=== PATIENT | female | born 1940 | race Asian ===

== ENCOUNTER 2019-12-28 14:46 | Inpatient (IN) | payer MEDICARE, OTHER ==
[~2019-12-28] VITALS: Ht 154.9 cm; Wt 57.6 kg
--- NOTE | 2019-12-28 14:50 | NUR ---
[id number], from home with laceration on the back of the head s/p slipped and fell from stairs. pt denies syncope episode. c/o headache. no blurry vision. awaiting for MD bay
--- NOTE | 2019-12-28 15:12 | NUR ---
PER DAUGHTER, PATIENT DOES NOT TAKE ANY BLOOD THINNER MEDICATIONS.
[2019-12-28] MEDS ORDERED: TDAP [DIPH/PERTUSSIS/TET] 0.5 ML VIAL IM ONE ×2 (15:30→15:56)
--- NOTE | 2019-12-28 15:56 | NUR ---
PT OUT FOR CT
[2019-12-28 16:19] LABS: BASOPHILS # (AUTO) 0.1 /CMM (0.0-0.2); BASOPHILS % (AUTO) 1.5 % (0.0-2.0); EOSINOPHILS % (AUTO) 2.7 % (0.0-6.0); HEMATOCRIT 49 % (33-45); HEMOGLOBIN 16.1 g/dL (11.5-14.8); LYMPHOCYTES # (AUTO) 1.7 /CMM (0.8-4.8); LYMPHOCYTES % (AUTO) 26.4 % (20.0-44.0); MEAN CORPUSCULAR HGB CONC 33 g/dl (31.0-36.0); MEAN CORPUSCULAR VOLUME 90 fL (82-100); MONOCYTES # (AUTO) 0.5 /CMM (0.1-1.30); MONOCYTES % (AUTO) 8.3 % (2.0-12.0); NEUTROPHILS % (AUTO) 61.1 % (43.0-81.0); PLATELET COUNT (AUTO) 203 /CMM (150-450); RED BLOOD CELL COUNT(AUTO) 5.46 MIL/uL (4.0-5.2); WHITE BLOOD COUNT (AUTO) 6.6 K/uL (4.3-11.0)
[2019-12-28 17:12] LABS: ALANINE AMINOTRANSFERASE 52 U/L (12-78); ALBUMIN 4.1 g/dL (3.4-5.0); ALKALINE PHOSPHATASE 97 U/L (46-116); ASPARTATE AMINOTRANSFERASE 69 U/L (15-37); BILIRUBIN,DIRECT 0.1 mg/dL (0.0-0.2); BILIRUBIN,TOTAL 0.5 mg/dL (0.2-1.0); CALCIUM, SERUM 9.6 mg/dL (8.5-10.1); CARBON DIOXIDE 29 mmol/L (21-32); CHLORIDE 91 mmol/L (98-107); CREATININE 1.5 mg/dL (0.6-1.3); POTASSIUM 4.5 mmol/L (3.5-5.1); SODIUM SERUM 128 mmol/L (136-145); TOTAL PROTEIN, SERUM 8.7 g/dL (6.4-8.2); UREA NITROGEN, BLOOD 24 mg/dL (7-18)
[2019-12-28 17:14] LABS: GLUCOSE 420 mg/dL (74-106)
[2019-12-28] MEDS ORDERED: ROSU10TA29 PO (17:15)
[2019-12-28] MEDS ORDERED: METO100T14 PO (17:15)
[2019-12-28] MEDS ORDERED: OLME1TAB90 PO (17:15)
[2019-12-28] MEDS ORDERED: GLIP10TA21 PO (17:15)
[2019-12-28] MEDS ORDERED: AMLO-212 PO (17:15)
[2019-12-28] MEDS ORDERED: METF-442 PO (17:15)
[2019-12-28] MEDS ORDERED: DULA0.75 SQ (17:15)
[2019-12-28] MEDS ORDERED: MONT10TA22 PO (17:15)
[2019-12-28] MEDS ORDERED: OMEP40CA13 PO (17:15)
--- NOTE | 2019-12-28 17:42 | NUR ---
tried to collect urine and pt still unable to collect at this time
[2019-12-28] MEDS ORDERED: IV NS 0.9% 500 ML BAG IV ONE (18:00)
[2019-12-28] MEDS ORDERED: INSULIN REGULAR, HUMAN 100 UNIT/ML 10 ML VIAL SQ ONE (18:00)
--- NOTE | 2019-12-28 18:04 | NUR ---
COVID SWAB DONE AND SENT TO LAB
[2019-12-28] MEDS ORDERED: INSULIN REGULAR, HUMAN 100 UNIT/ML 10 ML VIAL ONE (18:06)
[2019-12-28] MEDS ORDERED: ACETAMINOPHEN 325 MG TABLET PO PRN (18:30)
[2019-12-28] MEDS ORDERED: DEXTROSE 50%-WATER 50 ML DISP.SYRIN IV PRN (18:30)
[2019-12-28] MEDS ORDERED: MAG HYDROX/AL HYDROX/SIMETH 30 ML UDC PO PRN (18:30)
[2019-12-28] MEDS ORDERED: CLONIDINE HCL 0.1 MG TABLET PO PRN (18:30)
[2019-12-28] MEDS ORDERED: Z GUARD REMEDY 2 OZ OINT TP PRN (18:30)
[2019-12-28] MEDS ORDERED: MAGNESIUM HYDROXIDE 30 ML UDC PO PRN (18:30)
[2019-12-28] MEDS ORDERED: ONDANSETRON HCL/PF 4 MG/2 ML VIAL IVP PRN (18:30)
--- NOTE | 2019-12-28 18:44 | NUR ---
unable to collect urine. MD prasad made aware and agreed not to collect
--- NOTE | 2019-12-28 19:06 | NUR ---
IV LINE LAC 20G REMOVED DUE TO PT WILL BE ON VELCRO WRIST.
--- NOTE | 2019-12-28 19:58 | NUR ---
BED ASSIGNMENT 325-1
--- NOTE | 2019-12-28 20:13 | NUR ---
report given to nish gill for eloisa pt will be transported to 3rd floor
[2019-12-28 20:30] VITALS: BP 116/61
--- NOTE | 2019-12-28 20:30 | NUR ---
TELE/RN ADMITTING NOTES: RECEIVED REPORT FROM ROMEO PALM NURSE. PT ARRIVED TO THE UNIT AT 2024 VIA GURNEY, WITH ACLS PROTOCOL. ON ROOM AIR, SATURATING WELL. A/OX4. UZBEK BUT FLUENT IN CROATIAN. VERBALLY RESPONSIVE AND ANAY TO MAKE NEEDS KNOWN. NO SOB, NO S/S OF DISTRESS. COMPLAINS OF DISCOMFORT ON HER LEFT SHOULDER. PER PT "I FELL FROM THE SECOND FLOOR DOWN THE STAIRS, LIKE 20 STEPS. LUCKILY I OPENED THE DOOR AND CALLED MY NEIGHBOR, THEN THEY CALLED AMBULANCE. I LIVE BY MYSELF AND I'M INDEPENDENT. I WALK FINE ON MY OWN BUT I GOT REALLY DIZZY". CONNECTED TO THE TELE MONITOR. READING IS CURRENTLY NSR 65. ORIENTED PT TO UNIT AND STAFF. BELONGINGS LIST CHECKED. FULL CODE STATUS. IV ON THE RIGHT AC #18G, INTACT AND PATENT, FLUSHING WELL. INITIAL VS TAKEN. BP: 116/61 HR: 68 TEMP: 98.1 O2SAT: 100%. SKIN ASSESSMENT DONE. RIGHT KNEE SKIN TEAR PRESENT, LEFT FOOT SKIN TEAR PRESENT, ABRASIONS ON THE LEFT HAND PRESENT, AND NOTED WITH KEILA ON THE POSTERIOR HEAD. WRAPPED WITH GAUZE AND KERLIX, SATURATED. WILL REPLACE WITH CLEAN AND DRY DRESSING. PT. IS AMBULATORY, PREFERS TO GO TO BED SIDE COMMODE. INFORMED PT TO REST IN BED FOR NOW AND TO PRESS THE CALL LIGHT WHEN NEEDS ASSISTANCE. BED ALARM ON. CALL LIGHT WITHIN REACH. SAFETY MEASURES IN PLACE. BED IN LOW, LOCKED POSITION WITH SR UP X2. WILL CONTINUE TO MONITOR ACCORDINGLY. ALL CONCERNS ADDRESSED RIGHT NOW.
[2019-12-28] MEDS: METOPROLOL TARTRATE 50 MG TABLET PO SCH (21:00)
[2019-12-28] MEDS: AMLODIPINE BESYLATE 5 MG TABLET PO SCH (21:08)
[2019-12-28] MEDS: MONTELUKAST SODIUM (10MG) 10 MG TABLET PO SCH (21:10)
[2019-12-28] MEDS: IV NS 0.9% 1,000 ML IV SCH (21:19)
[2019-12-28 21:25] VITALS: BP 116/61
--- NOTE | 2019-12-28 22:00 | NUR ---
TELE/RN NOTES: ACCUCHECK FOR 2200 IS 220. ADMINISTERED 4UNITS OF REG. INSULIN PER SLIDING SCALE. GIVEN APPLE JUICE TO AVOID BS FROM DROPPING.
[2019-12-28] MEDS: ZOLPIDEM TARTRATE 5 MG TABLET PO PRN (22:01)
[2019-12-28] MEDS: BLOOD SUGAR DIAGNOSTIC 1 EACH STRIP VI SCH (22:06)
[2019-12-28] MEDS: *INSULIN REGULAR(HUMULIN R)HUM 100 UNIT/ML VIAL SQ PRN (22:09)
[2019-12-29] VITALS: BP 109/50
--- NOTE | 2019-12-29 02:40 | NUR ---
TELE/RN NOTES: ON-CALL, OUTSIDE MACHINIST HELPER DERIK NOTIFIED ABOUT VTE SCORE OF PATIENT 3. PER OUTSIDE MACHINIST HELPER, "NO CHEMICAL PROPHYLAXIS YET. NEEDS ORTHO CONSULT FIRST".
[2019-12-29 04:00] VITALS: BP 116/60
[2019-12-29] MEDS: HYDROCODONE/APAP 5/325MG TABLET PO PRN ×2 (04:00→17:47)
--- NOTE | 2019-12-29 04:07 | NUR ---
TELE/RN NOTES: PT. COMPLAINED OF PAIN 7 ON HER SHOULDER AND HEAD, A/OX4. VSS. BP: 116/60 HR:65. ADMINISTERED NORCO 5/325 PO PRN Q4 ORDERED FOR PAIN. TOLERATED WELL. GIVEN WITH APPLE SAUCE. PER PT "I PREFER TO EAT SO MY STOMACH DON'T HURT WHEN I TAKE MEDICINE". WILL CONTINUE TO MONITOR.
[2019-12-29] MEDS: IV NS 0.9% 1,000 ML IV SCH ×2 (04:12→16:00)
--- NOTE | 2019-12-29 06:28 | NUR ---
TELE/RN CLOSING NOTES: PT. REMAINS STABLE, COMFORTABLY RESTING IN BED. ON ROOM AIR, SATURATING WELL. A/OX4. VERBALLY RESPONSIVE AND ANAY TO MAKE NEEDS KNOWN. NO SOB, NO S/S OF DISTRESS. NO C/O AT THIS TIME. TELE READING IS CURRENTLY NSR 60. IV ON THE RIGHT AC #18G, INTACT AND PATENT, FLUSHING WELL. PREFERS TO GO TO BED SIDE COMMODE. INFORMED PT TO REST IN BED FOR NOW AND TO PRESS THE CALL LIGHT WHEN NEEDS ASSISTANCE. BED ALARM ON. CALL LIGHT WITHIN REACH. ALL CONCERNS ADDRESSED RIGHT NOW. SAFETY MEASURES KEPT IN PLACE, BED LOCKED AND IN LOWEST POSITION, CALL LIGHT WITHIN REACH. ALL DUE MEDS GIVEN ORDERED. ALL NURSING NEEDS MET AND RENDERED. KEPT CLEAN AND DRY AT ALL TIMES, WARM AND COMFORTABLE THROUGHOUT THE SHIFT. WILL ENDORSE TO DAY SHIFT FOR XIOMARA.
[2019-12-29 07:00] LABS: BASOPHILS % (AUTO) 0.7 % (0.0-2.0); EOSINOPHILS % (AUTO) 2.8 % (0.0-6.0); HEMATOCRIT 40 % (33-45); HEMOGLOBIN 13.3 g/dL (11.5-14.8); LYMPHOCYTES # (AUTO) 1.8 /CMM (0.8-4.8); LYMPHOCYTES % (AUTO) 28.2 % (20.0-44.0); MEAN CORPUSCULAR HGB CONC 33 g/dl (31.0-36.0); MEAN CORPUSCULAR VOLUME 89 fL (82-100); MONOCYTES # (AUTO) 0.5 /CMM (0.1-1.30); MONOCYTES % (AUTO) 8.4 % (2.0-12.0); NEUTROPHILS # (AUTO) 3.8 /CMM (1.8-8.9); NEUTROPHILS % (AUTO) 59.9 % (43.0-81.0); PLATELET COUNT (AUTO) 175 /CMM (150-450); RED BLOOD CELL COUNT(AUTO) 4.49 MIL/uL (4.0-5.2); WHITE BLOOD COUNT (AUTO) 6.3 K/uL (4.3-11.0)
[2019-12-29 07:14] LABS: CALCIUM, SERUM 8.2 mg/dL (8.5-10.1); CREATININE 1.1 mg/dL (0.6-1.3); MAGNESIUM 1.5 mg/dL (1.8-2.4); PHOSPHORUS 3.2 mg/dL (2.5-4.9); POTASSIUM 3.3 mmol/L (3.5-5.1)
[2019-12-29] MEDS: INSULIN REGULAR, HUMAN 100 UNIT/ML 3 ML VIAL SQ PRN ×3 (07:34→17:36)
[2019-12-29] MEDS: BLOOD SUGAR DIAGNOSTIC 1 EACH STRIP VI SCH ×4 (07:34→21:06)
--- NOTE | 2019-12-29 07:35 | NUR ---
TELE/RN NOTES: BS CHECK FOR 729 IS 123. NO REG INSULIN COVERAGE NEEDED.
[2019-12-29 08:00] VITALS: BP 115/62
[2019-12-29] MEDS: METOPROLOL TARTRATE 50 MG TABLET PO SCH ×2 (09:00→21:00)
[2019-12-29] MEDS ORDERED: Medication Not On Formulary EA (Olmesartan/Hydrochlorothiazide (Olmesartan-Hctz 40-12.5 PO SCH (09:00)
[2019-12-29] MEDS: AMLODIPINE BESYLATE 5 MG TABLET PO SCH (09:00)
[2019-12-29] MEDS: LOSARTAN POTASSIUM 50 MG TABLET PO SCH (09:17)
[2019-12-29] MEDS ORDERED: HYDROCHLOROTHIAZIDE 25 MG TABLET PO SCH (09:17)
--- NOTE | 2019-12-29 09:49 | NUR ---
WOUND CARE CONSULT: PT PRESENTS WITH MULTIPLE AREAS OF SKIN DISCOLORATION, DRY ABRASIONS TO LEFT DORSAL FOOT AND RT KNEE AND STAPLED LACERATION TO POSTERIOR SCALP, ALL PRESENT ON ADMISSION. PT IS WEARING A SPLINT TO LEFT ARM, PRESENT ON ADMISSION. CURRENT ARCHANA SCORE IS 21. WILL SEE PRN.
[2019-12-29] MEDS: POTASSIUM CHLORIDE 20 MEQ TAB.PRT.SR PO SCH ×3 (10:08→12:31)
[2019-12-29] MEDS: PANTOPRAZOLE 40 MG TABLET.DR PO SCH (10:08)
[2019-12-29] MEDS: ATORVASTATIN 10 MG TABLET PO SCH (10:09)
[2019-12-29] MEDS: MONTELUKAST SODIUM (10MG) 10 MG TABLET PO SCH (10:09)
[2019-12-29] MEDS: Magnesium 1GM/D5W 100ML PREMIX 100 ML IV SCH ×2 (10:17→11:59)
--- NOTE | 2019-12-29 11:21 | NUR ---
Pharmacist consult requested by Dr. Preet Segura as patient lives alone and fell down the stairs. Patient is an 79- year-old female. Patient is alert and oriented x4. Patient was receptive to meeting with this SW. Patient was calm, cooperative, and made appropriate eye contact with this SW. Patient reported that she fell on 12/27 in her home after feeling uneasy. Patient stated that she had been dizzy and reported that she took her blood pressure and patient reported her blood pressure was high. Patient reported that she took her blood pressure medicine and fell asleep. Once patient woke up, patient stated that she was dizzy however was going to use the restroom. Patient stated that she attempted to grab onto stair railing but could not and fell. Patient stated that her daughter Viridiana comes to help her mother around the house, in the mornings and in the evenings. Patient stated that with COVID this is the only time she really sees her daughter. Patient stated that she has not had an appetite and has needed a sleeping pill 2-3x a week. Patient reported that she has not seen her primary physician due to the pandemic but does have over the phone sessions when necessary. Patient reported that yung Kemp is currently at the patients home and can provide transportation upon discharge. Patient and social sciences instructor discussed In-Home Support Services, private caregiver, and having more family availability to assist the patient as needed. Patient did not want IHSS or private caregiver as patient reported that she is independent in IADLs and ADLs. Patient stated that she will speak to daughter and other family members if they can be more available to her. Patient also awaiting physician recommendation as she has pain on her head and left arm due to fall. No other SS interventions are needed at this time. SW will remain available for all needs regarding this patient.
[2019-12-29 12:00] VITALS: BP_SYST 142; BP_SYST 148; BP_SYST 156; BP_DIAS 68; BP_DIAS 76; BP_DIAS 83
[2019-12-29 12:28] LABS: CREATININE, URINE 37.8 MG/DL (30.0-125.0); URINE TOTAL PROTEIN 7.7 mg/dL (0-11.9)
[2019-12-29 12:33] LABS: BILIRUBIN,URINE NEGATIVE (NEGATIVE); BLOOD, URINE NEGATIVE Ery/uL (NEGATIVE); COLOR,URINE YELLOW (YELLOW); LEUKOCYTE ESTERASE ,URINE NEGATIVE (NEGATIVE); NITRITE, URINE NEGATIVE (NEGATIVE); PROTEIN,URINE NEGATIVE (NEGATIVE); UGLUCOSE >=1000 mg/dL (NEGATIVE); UROBILINOGEN,URINE 0.2 EU/dL (0.2)
[2019-12-29 12:45] LABS: BACTERIA,URINE Rare /HPF (None Seen); RBC,URINE 0-2 /HPF (0-2); SQUAMOUS EPITHELIAL CELL,UR Rare /HPF (None Seen); WBC,URINE 0-2 /HPF (0-3)
[2019-12-29 13:23] LABS: EOSINOPHIL,URINE None Seen
[2019-12-29 16:00] VITALS: BP 128/69
[2019-12-29] MEDS: *INSULIN REGULAR(HUMULIN R)HUM 100 UNIT/ML VIAL SQ PRN ×2 (17:31→21:11)
--- NOTE | 2019-12-29 18:00 | NUR ---
DRUG SCREEN URINE SENT WELL URINES FOR DR. GONZALEZ.MG AND POTASSIUM REPLACEMENTS GIVEN.MEDICATED X 1 FOR HEADACHE AND LT. SHOULDER PAIN.NO ORTHO CONSULT THUS FAR.
--- NOTE | 2019-12-29 19:34 | NUR ---
ROOF FITTER OPEN NOTES PT IS LAYING IN BED. A/O X4. STABLE ON RA, NO SOB/ ACUTE RESPIRATORY DISTRESS NOTED. IV IN R AC #18G IS PATENT AND INTACT RUNNING NS @ 100MLS/HR. PT DENIES ANY PAIN AT THE MOMENT. BED IS IN LOWEST LOCKED POSITION WITH SIDE RAILS UP X3, SEMI FOWLERS. CALL LIGHT IS WITHIN REACH. WILL CONTINUE TO MONITOR.
[2019-12-29 20:00] VITALS: BP 111/56
[2019-12-29] MEDS: ENOXAPARIN SODIUM 40 MG/0.4 ML DISP.SYRIN SQ SCH (20:45)
[2019-12-29] MEDS: ZOLPIDEM TARTRATE 5 MG TABLET PO PRN (21:17)
[2019-12-30] VITALS (7 sets, daily range): BP systolic 109–153; BP diastolic 48–91
[2019-12-30] MEDS: IV NS 0.9% 1,000 ML IV SCH ×2 (00:49→10:40)
[2019-12-30] MEDS: HYDROCODONE/APAP 5/325MG TABLET PO PRN ×2 (03:35→08:56)
[2019-12-30 06:22] LABS: BASOPHILS % (AUTO) 0.7 % (0.0-2.0); HEMATOCRIT 38 % (33-45); HEMOGLOBIN 12.6 g/dL (11.5-14.8); LYMPHOCYTES # (AUTO) 1.1 /CMM (0.8-4.8); LYMPHOCYTES % (AUTO) 19.2 % (20.0-44.0); MEAN CORPUSCULAR HGB CONC 33 g/dl (31.0-36.0); MEAN CORPUSCULAR VOLUME 90 fL (82-100); MONOCYTES # (AUTO) 0.4 /CMM (0.1-1.30); MONOCYTES % (AUTO) 6.7 % (2.0-12.0); NEUTROPHILS # (AUTO) 4.1 /CMM (1.8-8.9); NEUTROPHILS % (AUTO) 72.4 % (43.0-81.0); PLATELET COUNT (AUTO) 169 /CMM (150-450); RED BLOOD CELL COUNT(AUTO) 4.22 MIL/uL (4.0-5.2); WHITE BLOOD COUNT (AUTO) 5.7 K/uL (4.3-11.0)
[2019-12-30] MEDS: BLOOD SUGAR DIAGNOSTIC 1 EACH STRIP VI SCH ×4 (06:31→21:07)
[2019-12-30 06:54] LABS: ALBUMIN 2.7 g/dL (3.4-5.0); BILIRUBIN,TOTAL 0.5 mg/dL (0.2-1.0); CALCIUM, SERUM 7.9 mg/dL (8.5-10.1); CREATININE 1.1 mg/dL (0.6-1.3); MAGNESIUM 1.9 mg/dL (1.8-2.4); PHOSPHORUS 2.4 mg/dL (2.5-4.9); POTASSIUM 4.2 mmol/L (3.5-5.1)
[2019-12-30] MEDS: INSULIN REGULAR, HUMAN 100 UNIT/ML 3 ML VIAL SQ PRN ×3 (06:54→17:30)
--- NOTE | 2019-12-30 07:22 | NUR ---
FINAL ASSEMBLY INSPECTOR CLOSE NOTES PT IS LAYING IN BED. A/O X4. ON RA, NO SOB/ ACUTE RESPIRATORY DISTRESS NOTED. IV IN R AC # 18G IS PATENT AND INTACT RUNNING NS @ 100 MLS/HR. PT DENIES ANY PAIN AT THE MOMENT. BED IS IN LOWEST LOCKED POSITION WITH SIDE RAILS UP X3, SEMI FOWLERS. CALL LIGHT IS WITHIN REACH. WILL ENDORSE TO AM NURSE.
--- NOTE | 2019-12-30 07:40 | NUR ---
INCOME TAX AUDITOR OPENING NOTES RECEIVED PATIENT RESTING IN BED. A/O X4 IN STABLE CONDITION. PATIENT IS ON RA WITH NO S/S OF SOB NOTED; NO ACUTE RESPIRATORY DISTRESS NOTED, PATIENT BREATHING EVEN AND UNLABORED. IV TO RT AC #18G PATENT AND INTACT RUNNING 0.9%NS @ 100MLS/HR. PATIENT STATES PAIN TO LT ARM 8/10 AT THE MOMENT. WILL ADMINISTER PAIN MEDS ORDERED. BED IS AT LOWEST POSITION AND LOCKED WITH SIDE RAILS UPX3 AND CALL LIGHT IS WITHIN REACH. WILL CONTINUE TO MONITOR.
[2019-12-30] MEDS: PANTOPRAZOLE 40 MG TABLET.DR PO SCH (07:57)
--- NOTE | 2019-12-30 08:18 | NUR ---
RECORDING STUDIO SET UP WORKER NOTES ORTHOSTATIC BP LAYING: BP: 112/57 HR: 99 SITTING: BP: 107/48 HR: 99 STANDING: BP: 113/58 HR: 114
[2019-12-30] MEDS: LOSARTAN POTASSIUM 50 MG TABLET PO SCH (08:52)
[2019-12-30] MEDS: ATORVASTATIN 10 MG TABLET PO SCH (08:52)
[2019-12-30] MEDS: METOPROLOL TARTRATE 50 MG TABLET PO SCH ×2 (08:52→20:53)
[2019-12-30] MEDS: MONTELUKAST SODIUM (10MG) 10 MG TABLET PO SCH (08:52)
[2019-12-30] MEDS: AMLODIPINE BESYLATE 5 MG TABLET PO SCH (08:53)
[2019-12-30] MEDS ORDERED: K PHOS NEUTRAL 250 MG TABLET PO ONE (12:00)
--- NOTE | 2019-12-30 18:30 | NUR ---
RN MS NOTES PATIENT RESTING IN BED. A/O X4 IN STABLE CONDITION. PATIENT IS ON RA WITH NO S/S OF SOB NOTED; NO ACUTE RESPIRATORY DISTRESS NOTED, PATIENT BREATHING EVEN AND UNLABORED. IV TO RT AC #18G PATENT AND INTACT RUNNING 0.9%NS @ 100MLS/HR. PATIENT STATES PAIN 4/10 TO LT SHOULDER AREA PT C/O OF FEELING FEVER. TEMP TAKEN AT 1500 102.0; TYLENOL 650 MG GIVEN AND COOLING MEASURE DONE. TEMP @1800 101.7. TEMP @1815 100.6 TEMP@[address] WARE CONTACTED BLOOD CX ORDER PLACED. PT IS RESTING IN BED AND IN NO DISTRESS AT THIS TIME. BED IS AT LOWEST POSITION AND LOCKED WITH SIDE RAILS UPX3 AND CALL LIGHT IS WITHIN REACH. WILL ENDORSE TO ONCOMING SHIFT.
--- NOTE | 2019-12-30 19:45 | NUR ---
MS RN NOTES RECEIVED ON BED A/O X4,BREATHING REGULAR,NOT IN ANY FORM OF DISTRESS.IV SITE INFILTRATED.DVT PUMP IN USED FOR DVT PROPHYLAXIS.LEFT ULNAR FRACTURE WITH SPLINT NOTED,LATEST ORAL TEMP OF 99.0,AWAITING BLOOD CULTURE RESULT.AMBULATE WITH ASSIST.CALL LIGHT IN REACH,NEEDS ANTICIPATED.
--- NOTE | 2019-12-30 19:50 | NUR ---
MS RN NOTES NEW SALINE LOCK PLACE ON RIGHT WRIST #22,SAME IVF INFUSING VIA IV PUMP.
[2019-12-30] MEDS: ZOLPIDEM TARTRATE 5 MG TABLET PO PRN (20:54)
[2019-12-30] MEDS: ENOXAPARIN SODIUM 40 MG/0.4 ML DISP.SYRIN SQ SCH (20:54)
[2019-12-30] MEDS: *INSULIN REGULAR(HUMULIN R)HUM 100 UNIT/ML VIAL SQ PRN (21:13)
--- NOTE | 2019-12-30 21:15 | NUR ---
MS RN NOTES ACCU-CHECK BLOOD SUGAR CHECK 186,COVERED WITH HUMULIN R 3 UNITS PER SLIDING SCALE.
--- NOTE | 2019-12-31 02:00 | NUR ---
MS RN NOTES AWAKE,ASSISTED TO THE BATHROOM,VOIDED.
[2019-12-31] MEDS: IV NS 0.9% 1,000 ML IV SCH ×2 (02:01→06:30)
--- NOTE | 2019-12-31 04:00 | NUR ---
MS RN NOTES SOUND ASLEEP,KEPT WARM AND COMFORTABLE.
[2019-12-31] MEDS: BLOOD SUGAR DIAGNOSTIC 1 EACH STRIP VI SCH ×2 (05:33→11:43)
[2019-12-31] MEDS: INSULIN REGULAR, HUMAN 100 UNIT/ML 3 ML VIAL SQ PRN ×2 (05:44→11:44)
--- NOTE | 2019-12-31 05:45 | NUR ---
MS RN NOTES ACCU-CHECK BLOOD SUGAR CHECK 135,COVERED WITH HUMULIN R 2 UNITS PER SLIDING SCALE.
[2019-12-31 06:00] VITALS: BP_SYST 129; BP_SYST 141; BP_SYST 150; BP_DIAS 72; BP_DIAS 79; BP_DIAS 89
--- NOTE | 2019-12-31 06:38 | NUR ---
MS RN NOTES AFEBRILE THRU OUT SHIFT.O2 SAT WITH IN NORMAL LIMITS.BLOOD SUGAR WITH IN ACCEPTABLE LEVEL.LEFT WRIST SPLINT STILL IN USED.NO COMPLAINTS OF PAIN THRU OUT SHIFT.IN NO ACUTE DISTRESS.WILL ENDORSE TO DAY NURSE FOR XIOMARA.
[2019-12-31 08:00] VITALS: BP_SYST 124; BP_SYST 152; BP_SYST 153; BP_DIAS 72; BP_DIAS 73; BP_DIAS 85
--- NOTE | 2019-12-31 08:00 | NUR ---
RN OPENING NOTE Patient is resting in bed, A/O x4, showing no signs of acute distress or SOB, stable on RA. Patient denies any pain or discomfort at this time. IV line is clean and intact flushing well. Patient is able to ambulate with assistance to bathroom. Bed is in lowest position, side rails x2 in upright position, call light is within reach, fall safety and aspiration precautions enforced. Will continue with plan of care.
[2019-12-31 08:11] LABS: PTH, INTACT 40 pg/mL (15-65)
[2019-12-31] MEDS ORDERED: NEUTRA PHOS 1 POWD.PACKET PO SCH (08:30)
[2019-12-31] MEDS: LOSARTAN POTASSIUM 50 MG TABLET PO SCH (08:39)
[2019-12-31 08:40] VITALS: BP 152/73
[2019-12-31] MEDS: MONTELUKAST SODIUM (10MG) 10 MG TABLET PO SCH (08:40)
[2019-12-31] MEDS: AMLODIPINE BESYLATE 5 MG TABLET PO SCH (08:40)
[2019-12-31] MEDS: METOPROLOL TARTRATE 50 MG TABLET PO SCH (08:40)
[2019-12-31] MEDS: PANTOPRAZOLE 40 MG TABLET.DR PO SCH (08:41)
[2019-12-31] MEDS: ATORVASTATIN 10 MG TABLET PO SCH (08:41)
[2019-12-31 09:19] LABS: ALANINE AMINOTRANSFERASE 26 U/L (12-78); ALBUMIN 2.7 g/dL (3.4-5.0); ALKALINE PHOSPHATASE 66 U/L (46-116); ASPARTATE AMINOTRANSFERASE 37 U/L (15-37); BILIRUBIN,TOTAL 0.5 mg/dL (0.2-1.0); CALCIUM, SERUM 8.4 mg/dL (8.5-10.1); CARBON DIOXIDE 22 mmol/L (21-32); CHLORIDE 102 mmol/L (98-107); GLUCOSE 165 mg/dL (74-106); MAGNESIUM 1.8 mg/dL (1.8-2.4); POTASSIUM 4.4 mmol/L (3.5-5.1); SODIUM SERUM 136 mmol/L (136-145); TOTAL PROTEIN, SERUM 6.3 g/dL (6.4-8.2); UREA NITROGEN, BLOOD 14 mg/dL (7-18)
[2019-12-31] MEDS ORDERED: LOSA50TA3 PO (12:18)
--- NOTE | 2019-12-31 14:30 | NUR ---
MOLD SHAKER NOTE Patient is medically cleared for discharge. A/O x4, showing no signs of acute distress or SOB, stable on RA. Cleared by MD, Ortho, PT. OT consult to follow with [facility]. DC instructions provided and patient verbalized understanding. Skin assessed, photos taken and placed in chart. IV line removed, ID band removed. All patient needs met, all due medications given. All belongings sent with patient. Patient picked up by daughter via private car en route to home.
[2019-12-31 15:08] LABS: *SPE ALBUMIN 2.8 g/dL (2.9-4.4); *SPE ALPHA-1-GLOBULIN 0.2 g/dL (0.0-0.4); *SPE ALPHA-2-GLOBULIN 0.7 g/dL (0.4-1.0); *SPE BETA GLOBULIN 0.9 g/dL (0.7-1.3); *SPE GLOBULIN, TOTAL 2.9 g/dL (2.2-3.9); *SPE M-SPIKE Not Observed g/dL (Not Observed); *SPEGAMMA GLOBULIN 1.1 g/dL (0.4-1.8)
== END 2019-12-31 14:15 | disposition home health service (06) | DRG 562 ==
LOC: ER 14:49 → TELE 19:59 → MED 12-30 09:09
PROVIDERS: ADMIT Internal Medicine
DX: S52.612A Displaced fracture of left ulna styloid process, initial encounter for closed fracture (principal); E11.00 Type 2 diabetes mellitus with hyperosmolarity without nonketotic hyperglycemic-hyperosmolar coma (NKHHC); N17.0 Acute kidney failure with tubular necrosis; E87.1 Hypo-osmolality and hyponatremia; I16.0 Hypertensive urgency; I12.9 Hypertensive chronic kidney disease with stage 1 through stage 4 chronic kidney disease, or unspecified chronic kidney disease; E11.22 Type 2 diabetes mellitus with diabetic chronic kidney disease; E11.65 Type 2 diabetes mellitus with hyperglycemia; N18.9 Chronic kidney disease, unspecified; J44.9 Chronic obstructive pulmonary disease, unspecified; E78.5 Hyperlipidemia, unspecified; Y93.9 Activity, unspecified; E83.42 Hypomagnesemia; S01.01XA Laceration without foreign body of scalp, initial encounter; E86.1 Hypovolemia; W10.9XXA Fall (on) (from) unspecified stairs and steps, initial encounter; E87.6 Hypokalemia; X58.XXXA Exposure to other specified factors, initial encounter; Z79.4 Long term (current) use of insulin; Y92.009 Unspecified place in unspecified non-institutional (private) residence as the place of occurrence of the external cause; Z79.84 Long term (current) use of oral hypoglycemic drugs
CPT/HCPCS: 36415; 70450-TC; 71045-TC; 72070-TC; 72100-TC; 72125-TC; 73030-TC; 73060-TC; 73090-TC; 73110; 73130-TC; 73564-TC; 80048-TC; 80053-TC; 80076-TC; 81001; 82550-TC; 82570-TC; 82962-TC; 83735-TC; 83970; 84100-TC; 84155; 84155-TC; 84165; 84300-TC; 84484-TC; 85025-TC; 87040-TC; 87081-TC; 90715; 93307-TC; 97112-TC; 97116-TC; 97530-TC; A6403; C9803; G0378; J1650; J1815; J3475; J7030; J7040

== ENCOUNTER 2020-02-16 10:48 | Inpatient (IN) | payer MEDICARE, OTHER ==
[~2020-02-16] VITALS: Ht 160 cm; Wt 53.1 kg
[~2020-02-16 10:48] MED LIST: AMLO-212 PO; DULA0.75 SQ; GLIP10TA21 PO; LOSA50TA3 PO; METF-442 PO; METO100T14 PO; MONT10TA22 PO; OMEP40CA13 PO; ROSU10TA29 PO
--- NOTE | 2020-02-16 11:05 | NUR ---
BIB RA FOR WEAKNESS, FEVER, DIARRHEA. VS CHECKED. FEVER 102. SEEN BY MD. IV ACCESS STARTED, BLOOD DRAW DONE. URINE COLLECTED AND SENT TO LAB.
--- NOTE | 2020-02-16 11:10 | NUR ---
covid swab and influenza swab collected and sent to lab
[2020-02-16 11:11] LABS: BILIRUBIN,URINE SMALL (NEGATIVE); COLOR,URINE YELLOW (YELLOW); LEUKOCYTE ESTERASE ,URINE Negative (NEGATIVE); NITRITE, URINE Negative (NEGATIVE); PH,URINE 5.5 (5.0-8.0); PROTEIN,URINE >=300 mg/dl (NEGATIVE); UGLUCOSE Negative (NEGATIVE); UROBILINOGEN,URINE 0.2 EU/dL (0.2)
[2020-02-16 11:12] LABS: BACTERIA,URINE Few /HPF (None Seen); SQUAMOUS EPITHELIAL CELL,UR Few /HPF (None Seen)
[2020-02-16 11:13] LABS: WBC,URINE 0-2 /HPF (0-3)
[2020-02-16 11:15] LABS: HEMOGLOBIN 14.3 g/dL (11.5-14.8); WHITE BLOOD COUNT (AUTO) 8.2 K/uL (4.3-11.0)
[2020-02-16 11:17] LABS: BASOPHILS % (AUTO) 0.4 % (0.0-2.0); HEMATOCRIT 44 % (33-45); LYMPHOCYTES # (AUTO) 1.5 /CMM (0.8-4.8); LYMPHOCYTES % (AUTO) 18.7 % (20.0-44.0); MEAN CORPUSCULAR HGB CONC 32 g/dl (31.0-36.0); MEAN CORPUSCULAR VOLUME 90 fL (82-100); MONOCYTES # (AUTO) 0.7 /CMM (0.1-1.30); MONOCYTES % (AUTO) 8.7 % (2.0-12.0); NEUTROPHILS # (AUTO) 5.9 /CMM (1.8-8.9); NEUTROPHILS % (AUTO) 72.2 % (43.0-81.0); PLATELET COUNT (AUTO) 212 /CMM (150-450); RED BLOOD CELL COUNT(AUTO) 4.89 MIL/uL (4.0-5.2)
[2020-02-16 11:18] LABS: ABG PCO2 26.9 mmHg (35.0-45.0); ABG PH 7.396 (7.350-7.450); ABG PO2 54.8 mmHg (75.0-100.0); AaDO2 113.1 mmHg; COHb 0.7 % (0.5-1.5); MetHb 0.2 % (0.0-1.5); O2Hb 88.2 % (94.0-97.0); SITE, ABG Right Brachial; VENT MODE, BG N/C 2LPM
[2020-02-16 11:24] LABS: CALCIUM, SERUM 8.6 mg/dL (8.5-10.1); CARBON DIOXIDE 21 mmol/L (21-32); CHLORIDE 97 mmol/L (98-107); CREATININE 1.8 mg/dL (0.6-1.3); GLUCOSE 147 mg/dL (74-106); POTASSIUM 4.4 mmol/L (3.5-5.1); SODIUM SERUM 135 mmol/L (136-145); UREA NITROGEN, BLOOD 29 mg/dL (7-18)
[2020-02-16 11:34] LABS: ALANINE AMINOTRANSFERASE 58 U/L (12-78); ALBUMIN 3.3 g/dL (3.4-5.0); ALKALINE PHOSPHATASE 75 U/L (46-116); ASPARTATE AMINOTRANSFERASE 138 U/L (15-37); BILIRUBIN,TOTAL 0.6 mg/dL (0.2-1.0); TOTAL PROTEIN, SERUM 8.4 g/dL (6.4-8.2)
[2020-02-16 11:36] LABS: B-TYPE NATRIURETIC PEPTIDE 229 PG/ML (0-125)
[2020-02-16] MEDS ORDERED: CEFEPIME 1 GM in IV D5W 50 ML IV ONE (12:00)
[2020-02-16] MEDS ORDERED: VANCOMYCIN 1 GM in IV D5W 250 ML IV ONE (12:00)
[2020-02-16 12:04] LABS: D-DIMER 1.48 mg/L(FEU (0.17-0.50)
[2020-02-16] MEDS ORDERED: LOSA50TA39 PO (12:04)
[2020-02-16] MEDS ORDERED: GLIM4TAB37 PO (12:04)
[2020-02-16] MEDS ORDERED: METF-442 PO (12:05)
[2020-02-16 12:46] LABS: CREATINE KINASE, TOTAL 191 U/L (26-192)
[2020-02-16 13:02] LABS: C-REACTIVE PROTEIN 8.9 mg/dL (0.0-0.9); FERRITIN 2713 ng/mL (8-388)
--- NOTE | 2020-02-16 13:17 | NUR ---
[facility] CALLED MOBILE EQUIPMENT SERVICER PAGED.
[2020-02-16] MEDS ORDERED: DEXAMETHASONE SOD PHOSPHATE 10 MG/ML VIAL ONE (13:47)
[2020-02-16] MEDS ORDERED: KETOROLAC TROMETHAMINE 15 MG/ML VIAL ONE (13:47)
[2020-02-16] MEDS ORDERED: ACETAMINOPHEN 325 MG TABLET ONE (13:48)
[2020-02-16] MEDS ORDERED: ACETAMINOPHEN 325 MG TABLET PO ONE (14:00)
[2020-02-16] MEDS ORDERED: KETOROLAC TROMETHAMINE INJ 30 MG/ML VIAL IV ONE (14:00)
[2020-02-16] MEDS ORDERED: DEXAMETHASONE SOD PHOSPHATE 10 MG/ML VIAL IV ONE (14:00)
[2020-02-16 14:20] LABS: BILIRUBIN,DIRECT 0.3 mg/dL (0.0-0.2)
[2020-02-16] MEDS ORDERED: ENOXAPARIN SODIUM 40 MG/0.4 ML DISP.SYRIN SQ ONE ×2 (14:30→15:10)
[2020-02-16] MEDS: IV NS 0.9% 1,000 ML IV SCH (18:57)
[2020-02-16] MEDS ORDERED: Z GUARD REMEDY 2 OZ OINT TP PRN (19:00)
[2020-02-16] MEDS ORDERED: ONDANSETRON HCL/PF 4 MG/2 ML VIAL IVP PRN (19:00)
--- NOTE | 2020-02-16 19:10 | NUR ---
RECEIVED REPORT FROM GENE DIXON. PT WAS BROUGHT INTO ER FOR WEAKNESS, FEVER, AND DIARRHEA. PT WAS RESTING UPON ASSESSMENT, BUT WAS EASILY AROUSED WHEN SPOKEN TO, A&OX4. PT IS HOOKED TO THE MONITOR AND POX. PT BREATHING EVENLY AND UNLABORED. PT MADE COMFORTABLE WITH EXTRA BLANKETS, TEMP 97.7. CALL LIGHT WITHIN REACH. WILL CONTINUE TO MONITOR
--- NOTE | 2020-02-16 20:08 | NUR ---
[facility] [phone]
[2020-02-16] MEDS ORDERED: CEFTRIAXONE 1GM BAG (ER ONLY) 50 ML IV ONE (21:25)
[2020-02-16] MEDS ORDERED: DOXYCYCLINE 100 MG VIAL ONE (21:26)
[2020-02-16] MEDS ORDERED: METOPROLOL TARTRATE 50 MG TABLET ONE (21:28)
[2020-02-16] MEDS: CEFTRIAXONE 1 G in IV D5W 50 ML IV SCH (21:45)
[2020-02-16] MEDS: METOPROLOL TARTRATE 50 MG TABLET PO SCH (21:45)
[2020-02-16] MEDS ORDERED: ATORVASTATIN 40 MG TABLET ONE (22:20)
[2020-02-16] MEDS: DOXYCYCLINE 100 MG in IV D5W 100 ML IV SCH (22:21)
[2020-02-16] MEDS: ATORVASTATIN 40 MG TABLET PO SCH (22:21)
[2020-02-17] MEDS ORDERED: ZOLPIDEM TARTRATE 5 MG TABLET ONE (01:53)
[2020-02-17] MEDS ORDERED: ZOLPIDEM TARTRATE 5 MG TABLET PO PRN (02:00)
[2020-02-17 05:15] LABS: ABG BASE EXCESS -9.2 mmol/L; ABG OXYGEN SATURATION 93.2 % (92.0-98.5); ABG PCO2 30.4 mmHg (35.0-45.0); ABG PH 7.325 (7.350-7.450); ABG PO2 71.4 mmHg (75.0-100.0); AaDO2 178.8 mmHg; COHb 0.5 % (0.5-1.5); MetHb 0.1 % (0.0-1.5); O2Hb 92.6 % (94.0-97.0); SITE, ABG Right Radial; VENT MODE, BG NC 5LPM
--- NOTE | 2020-02-17 05:38 | NUR ---
TELE 119-1
[2020-02-17 06:12] LABS: BASOPHILS % (AUTO) 0.1 % (0.0-2.0); HEMATOCRIT 41 % (33-45); HEMOGLOBIN 13.2 g/dL (11.5-14.8); LYMPHOCYTES # (AUTO) 0.7 /CMM (0.8-4.8); MEAN CORPUSCULAR HGB CONC 33 g/dl (31.0-36.0); MEAN CORPUSCULAR VOLUME 89 fL (82-100); MONOCYTES # (AUTO) 0.3 /CMM (0.1-1.30); MONOCYTES % (AUTO) 4.9 % (2.0-12.0); NEUTROPHILS # (AUTO) 5.7 /CMM (1.8-8.9); PLATELET COUNT (AUTO) 188 /CMM (150-450); RED BLOOD CELL COUNT(AUTO) 4.56 MIL/uL (4.0-5.2); WHITE BLOOD COUNT (AUTO) 6.7 K/uL (4.3-11.0)
[2020-02-17 06:17] LABS: ALANINE AMINOTRANSFERASE 55 U/L (12-78); ALBUMIN 2.4 g/dL (3.4-5.0); ALKALINE PHOSPHATASE 56 U/L (46-116); ASPARTATE AMINOTRANSFERASE 113 U/L (15-37); BILIRUBIN,TOTAL 0.4 mg/dL (0.2-1.0); CALCIUM, SERUM 7.8 mg/dL (8.5-10.1); CARBON DIOXIDE 21 mmol/L (21-32); CHLORIDE 98 mmol/L (98-107); CREATININE 1.6 mg/dL (0.6-1.3); MAGNESIUM 1.7 mg/dL (1.8-2.4); PHOSPHORUS 3.9 mg/dL (2.5-4.9); POTASSIUM 4.8 mmol/L (3.5-5.1); SODIUM SERUM 130 mmol/L (136-145); TOTAL PROTEIN, SERUM 6.8 g/dL (6.4-8.2); UREA NITROGEN, BLOOD 38 mg/dL (7-18)
[2020-02-17 06:23] LABS: CHOLESTEROL 98 mg/dL (<200); CREATINE KINASE, TOTAL 411 U/L (26-192); HDL CHOLESTEROL 38 mg/dL (40-60); LDL 42 mg/dL (0-99); THYROID STIMULATING HORMONE 0.186 uIU/mL (0.358-3.74); TRIGLYCERIDES 97 mg/dL (30-150)
[2020-02-17 06:56] LABS: GLUCOSE 370 mg/dL (74-106)
[2020-02-17] MEDS: PANTOPRAZOLE 40 MG TABLET.DR PO SCH ×2 (07:30→08:30)
[2020-02-17] MEDS ORDERED: AMLODIPINE BESYLATE 5 MG TABLET ONE (08:27)
[2020-02-17] MEDS ORDERED: ENOXAPARIN SODIUM 30 MG/0.3 ML DISP.SYRIN ONE (08:27)
[2020-02-17] MEDS ORDERED: DEXAMETHASONE SOD PHOSPHATE 10 MG/ML VIAL ONE (08:27)
[2020-02-17] MEDS ORDERED: MONTELUKAST SODIUM (10MG) 10 MG TABLET ONE (08:28)
[2020-02-17] MEDS ORDERED: LOSARTAN POTASSIUM 25 MG TABLET ONE (08:28)
[2020-02-17] MEDS ORDERED: PANTOPRAZOLE 40 MG TABLET.DR PO ONE (08:28)
[2020-02-17] MEDS ORDERED: METOPROLOL TARTRATE 50 MG TABLET ONE (08:28)
[2020-02-17] MEDS: DEXAMETHASONE SOD PHOSPHATE 10 MG/ML VIAL IV SCH (08:52)
[2020-02-17] MEDS: LOSARTAN POTASSIUM 50 MG TABLET PO SCH (08:52)
[2020-02-17] MEDS: METOPROLOL TARTRATE 50 MG TABLET PO SCH ×2 (08:53→22:36)
[2020-02-17] MEDS: AMLODIPINE BESYLATE 5 MG TABLET PO SCH (08:53)
[2020-02-17] MEDS: ENOXAPARIN SODIUM 30 MG/0.3 ML DISP.SYRIN SQ SCH ×2 (08:53→22:38)
[2020-02-17] MEDS: MONTELUKAST SODIUM (10MG) 10 MG TABLET PO SCH (08:53)
[2020-02-17] MEDS: IV NS 0.9% 1,000 ML IV SCH ×2 (08:54→13:26)
--- NOTE | 2020-02-17 08:59 | NUR ---
Willie roberts in EDM - 02/17/20 at 0859 by MAY phelbotomist by bedside trying to draw ptt and am labs, but pt is a hard stick will come back and send another tech
[2020-02-17] MEDS: DOXYCYCLINE 100 MG in IV D5W 100 ML IV SCH ×2 (09:43→21:21)
--- NOTE | 2020-02-17 10:55 | NUR ---
pt transferred to 119 bedside report given to conrado and shiv mock
--- NOTE | 2020-02-17 11:00 | NUR ---
RN/TELE NOTE RECEIVED A PATIENT FROM ER ON THE [facility]. TRANSFERRED PATIENT TO BED. PATIENT IS NO ACUTE DISTRESS. NO SOB NOTED.PATIENT ALERT ORIENTED X 2, VERBALLY RESPONSIVE. PATIENT HAS IV ACCESS LAC #22 GG, PATENT AND SALINE LOCK. PATIENT IS ON TELE MONITOR READING SR 80. ORIENTED PATIENT TO ROOM. SAFETY MEASURES ARE IN PLACE. BED AT THE LOWEST POSITION. BED ALARM IS ON. CALL LIGHT WITHIN REACH. CONTINUE TO MONITOR THOUGH OUT THE SHIFT.
[2020-02-17] MEDS: Magnesium 1GM/D5W 100ML PREMIX 100 ML IV SCH ×2 (13:26→15:25)
--- NOTE | 2020-02-17 15:04 | NUR ---
RN/TELE NOTE PER DNP CANDICE MCCLELLAND PT GAB WAS ORDERED. NOTED AND CARRIED OUT.
[2020-02-17] MEDS: GLIMEPIRIDE 4 MG TABLET PO SCH (16:50)
--- NOTE | 2020-02-17 17:46 | NUR ---
CLINICAL QUALITY ASSURANCE SPECIALIST CLOSING NOTE PATIENT IS IN BED RESTING COMFORTABLY. PATIENT IS IN NO ACUTE DISTRESS. HOB ELEVATED. PATIENT IS ON 5L OXYGEN VIA NC. PATIENT IS ON TEXTILE COATING MACHINE OPERATOR READING [place] 106. SAFETY MEASURES ARE IN PLACE. BED IN THE LOWEST POSITION, WITH BED ALARM ON. CALL LIGHT WITHIN REACH. ENDORSE PATIENT TO THE HEARING AID SPECIALIST FOR XIOMARA.
--- NOTE | 2020-02-17 19:10 | NUR ---
turning and beading machine operator opening notes received patient in bed awake alert and oriented x3 ,able to make simple needs known on 5 l via nc tolerating well at this time, iv site to left ac #20 g intact and patent, no redness, no infiltration present, on threat monitoring analyst sr 74. low bed and locked, bed alarm in place, call light kept within reach, remains comfortable at this time, will continue to monitor, all needs attended.
[2020-02-17] MEDS: CEFTRIAXONE 1 G in IV D5W 50 ML IV SCH (20:29)
--- NOTE | 2020-02-17 21:26 | NUR ---
churn driller helper notes pt accucheck first time 488 and repeat 492. insulin sliding scale followed, 20 u insulin given. lia rosen made aware with no new orders at this time.will continue to monitor.
[2020-02-17] MEDS: BLOOD SUGAR DIAGNOSTIC 1 EACH STRIP IN SCH (22:27)
[2020-02-17] MEDS: INSULIN REGULAR, HUMAN 100 UNIT/ML 3 ML VIAL SQ PRN (22:29)
[2020-02-17] MEDS: ATORVASTATIN 40 MG TABLET PO SCH (22:31)
[2020-02-18] VITALS: BP 126/70
[2020-02-18] MEDS: BLOOD SUGAR DIAGNOSTIC 1 EACH STRIP IN SCH ×6 (01:10→22:35)
[2020-02-18] MEDS: INSULIN REGULAR, HUMAN 100 UNIT/ML 3 ML VIAL SQ PRN ×6 (01:13→22:38)
[2020-02-18 04:23] VITALS: BP 114/53
[2020-02-18 06:33] LABS: BASOPHILS % (AUTO) 0.1 % (0.0-2.0); HEMATOCRIT 39 % (33-45); LYMPHOCYTES # (AUTO) 0.6 /CMM (0.8-4.8); LYMPHOCYTES % (AUTO) 5.5 % (20.0-44.0); MEAN CORPUSCULAR HGB CONC 33 g/dl (31.0-36.0); MEAN CORPUSCULAR VOLUME 87 fL (82-100); MONOCYTES # (AUTO) 0.3 /CMM (0.1-1.30); MONOCYTES % (AUTO) 2.8 % (2.0-12.0); NEUTROPHILS # (AUTO) 10.2 /CMM (1.8-8.9); NEUTROPHILS % (AUTO) 91.6 % (43.0-81.0); PLATELET COUNT (AUTO) 236 /CMM (150-450); RED BLOOD CELL COUNT(AUTO) 4.54 MIL/uL (4.0-5.2); WHITE BLOOD COUNT (AUTO) 11.1 K/uL (4.3-11.0)
--- NOTE | 2020-02-18 06:35 | NUR ---
risk intern closing notes patient in bed awake alert and oriented x3 ,able to make simple needs known on 5 l via nc tolerating well at this time, iv site to left ac #20 g intact and patent, no redness, no infiltration present, on nuclear monitoring technician sr 72. low bed and locked, bed alarm in place, call light kept within reach, remains comfortable at this time, will continue to monitor, all needs attended and endorse to next shift, toileting needs met.
[2020-02-18 07:03] LABS: CALCIUM, SERUM 8.2 mg/dL (8.5-10.1); CARBON DIOXIDE 20 mmol/L (21-32); CHLORIDE 103 mmol/L (98-107); CREATININE 1.4 mg/dL (0.6-1.3); GLUCOSE 167 mg/dL (74-106); MAGNESIUM 2.8 mg/dL (1.8-2.4); PHOSPHORUS 1.9 mg/dL (2.5-4.9); POTASSIUM 4.1 mmol/L (3.5-5.1); SODIUM SERUM 135 mmol/L (136-145); UREA NITROGEN, BLOOD 43 mg/dL (7-18)
[2020-02-18 07:12] LABS: PTH, INTACT 52 pg/mL (15-65)
[2020-02-18] MEDS: PANTOPRAZOLE 40 MG TABLET.DR PO SCH ×2 (07:30→07:52)
--- NOTE | 2020-02-18 08:00 | NUR ---
RN Opening note Received patient in bed, AO x 1 able to responds all stimuli, Pt does no appears pain or distress. Skin is warm to touch keep clean/dry intact IV site, respiratory even and unlabored with oxygen at 5LPM O2sat 93%. Kept locked bed with elevated HOB for aspiration precaution and ensure airway and lowest bed foe safety. Call light within reach, will continue to monitor.
[2020-02-18] MEDS: METOPROLOL TARTRATE 50 MG TABLET PO SCH ×2 (09:00→22:12)
[2020-02-18] MEDS: LOSARTAN POTASSIUM 50 MG TABLET PO SCH (09:00)
[2020-02-18] MEDS: AMLODIPINE BESYLATE 5 MG TABLET PO SCH (09:00)
[2020-02-18] MEDS: DOXYCYCLINE 100 MG in IV D5W 100 ML IV SCH ×2 (09:05→21:36)
[2020-02-18] MEDS: DEXAMETHASONE SOD PHOSPHATE 10 MG/ML VIAL IV SCH (09:06)
[2020-02-18] MEDS: MONTELUKAST SODIUM (10MG) 10 MG TABLET PO SCH (09:06)
[2020-02-18] MEDS: GLIMEPIRIDE 4 MG TABLET PO SCH ×2 (09:06→17:36)
[2020-02-18] MEDS: ENOXAPARIN SODIUM 30 MG/0.3 ML DISP.SYRIN SQ SCH ×2 (09:10→22:14)
--- NOTE | 2020-02-18 10:42 | NUR ---
Patient noticed CKBM 5.8 CH, made aware no new order at this time.
[2020-02-18 14:32] LABS: CREATININE KINASE (CK),MB 5.8 ng/mL (0.0-5.3)
--- NOTE | 2020-02-18 14:45 | NUR ---
Family member brought patient clothes, socks and access specialist. All items counted and documented on Belongings form.
[2020-02-18] MEDS ORDERED: K PHOS NEUTRAL 250 MG TABLET PO ONE (16:30)
[2020-02-18 17:06] LABS: *SPE A/G RATIO 0.7 (0.7-1.7); *SPE ALBUMIN 2.6 g/dL (2.9-4.4); *SPE ALPHA-1-GLOBULIN 0.4 g/dL (0.0-0.4); *SPE ALPHA-2-GLOBULIN 0.9 g/dL (0.4-1.0); *SPE GLOBULIN, TOTAL 3.5 g/dL (2.2-3.9); *SPE M-SPIKE Not Observed g/dL (Not Observed); *SPEGAMMA GLOBULIN 1.2 g/dL (0.4-1.8)
[2020-02-18] MEDS: ACETAMINOPHEN 325 MG TABLET PO PRN (17:36)
--- NOTE | 2020-02-18 18:31 | NUR ---
RN closing Patient in bed resting, does no appears pain or discomfort. Skin is warm to touch kepp clean/dry, intact site on left AC g20 with S. Respiratory even and unlabored with oxygen at 5LPM O2sat 95%. Kept elevated HOB for ensure air way and aspiration precaution and lowest bed for safety. Call light within reach, will endorse night clerk auditor.
--- NOTE | 2020-02-18 19:20 | NUR ---
hotel sales manager opening notes Received Pt from morning nurse. Pt is resting in bed comfortably. Pt is alert and orientedX3. Pt speaks Stateless and able to make needs known. Respiration on 5 L NC. No SOB. No S/S of distress noted. Tele monitor showed sinus rhytm hr at 92 bpm. Iv site at LAC # 22 is clean, intact, flushes well, and SL. Safety precautions is maintained. Bed at low position, brakes locked, hob elevated, side rails upX2 and call light is with reach. Will continue to monitor.
[2020-02-18 20:03] LABS: CREATININE, URINE 75.1 MG/DL (30.0-125.0); URINE TOTAL PROTEIN 100.1 mg/dL (0-11.9)
[2020-02-18] MEDS: CEFTRIAXONE 1 G in IV D5W 50 ML IV SCH (20:32)
[2020-02-18 21:03] LABS: BILIRUBIN,URINE NEGATIVE (NEGATIVE); COLOR,URINE YELLOW (YELLOW); LEUKOCYTE ESTERASE ,URINE NEGATIVE (NEGATIVE); NITRITE, URINE NEGATIVE (NEGATIVE); PROTEIN,URINE 30 mg/dl (NEGATIVE); UGLUCOSE >=1000 mg/dL (NEGATIVE); UROBILINOGEN,URINE 0.2 EU/dL (0.2)
[2020-02-18 21:26] LABS: BACTERIA,URINE None seen /HPF (None Seen); RBC,URINE 0-2 /HPF (0-2); WBC,URINE 0-2 /HPF (0-3)
[2020-02-18 21:35] LABS: EOSINOPHIL,URINE None Seen
[2020-02-18] MEDS: ATORVASTATIN 40 MG TABLET PO SCH (22:10)
[2020-02-18 23:01] VITALS: BP 133/75
[2020-02-19] VITALS: BP 131/62
[2020-02-19] MEDS: BLOOD SUGAR DIAGNOSTIC 1 EACH STRIP IN SCH ×6 (00:10→21:51)
[2020-02-19] MEDS: INSULIN REGULAR, HUMAN 100 UNIT/ML 3 ML VIAL SQ PRN ×3 (00:13→12:23)
[2020-02-19 04:00] VITALS: BP 150/67
[2020-02-19] MEDS: ACETAMINOPHEN 325 MG TABLET PO PRN (05:51)
--- NOTE | 2020-02-19 05:51 | NUR ---
hot frame tender notes Pt is complaining of pain and requesting tylenol. Administered tylenol 650 mg/po/prn as ordered for pain per Pt's requested. Safety precautions is maintained. Will continue to monitor.
--- NOTE | 2020-02-19 06:50 | NUR ---
wrapper sizer closing notes Pt is resting in bed comfortably. Pt is alert and orientedX3. Pt speaks Tanzanian and able to make needs known. Respiration on 5 L NC. No SOB. No S/S of distress noted. Vs is stable. Afebrile. Tele monitor showed sinus rhytm hr at 74 bpm. Iv site at LAC # 22 is clean, intact, flushes well, and SL. Kept Pt clean,d ry and comfor table. All needs met and attended. Safety precautions is maintained. Bed at low position, brakes locked, hob elevated, side rails upX2 and call light is with reach. Will endorse to morning nurse for XIOMARA.
[2020-02-19 07:27] LABS: HEMATOCRIT 43 % (33-45); HEMOGLOBIN 13.9 g/dL (11.5-14.8); LYMPHOCYTES # (AUTO) 0.4 /CMM (0.8-4.8); LYMPHOCYTES % (AUTO) 3.9 % (20.0-44.0); MEAN CORPUSCULAR HGB CONC 33 g/dl (31.0-36.0); MEAN CORPUSCULAR VOLUME 87 fL (82-100); MONOCYTES # (AUTO) 0.4 /CMM (0.1-1.30); MONOCYTES % (AUTO) 3.2 % (2.0-12.0); NEUTROPHILS # (AUTO) 10.8 /CMM (1.8-8.9); NEUTROPHILS % (AUTO) 92.9 % (43.0-81.0); PLATELET COUNT (AUTO) 294 /CMM (150-450); RED BLOOD CELL COUNT(AUTO) 4.89 MIL/uL (4.0-5.2); WHITE BLOOD COUNT (AUTO) 11.6 K/uL (4.3-11.0)
[2020-02-19] MEDS: PANTOPRAZOLE 40 MG TABLET.DR PO SCH ×2 (07:30→09:16)
--- NOTE | 2020-02-19 07:30 | NUR ---
TELE/RN OPENING NOTE Received patient resting in bed, A&O x 3, Uruguayan speaking. No complaints of pain/discomfort at this time. Breathing even and non-labored on 5 L via NC, saturating at 94%. No respiratory or cardiac distress noted. On tele monitor, reading SR 72. IV access noted on L hand #22, patent and intact, and flushing well. Bed locked to its lowest position, side rails x 2 up, call light in hand. Will continue with current medical management.
[2020-02-19 07:36] LABS: CALCIUM, SERUM 8.1 mg/dL (8.5-10.1); CREATININE 1.1 mg/dL (0.6-1.3); MAGNESIUM 2.1 mg/dL (1.8-2.4); PHOSPHORUS 1.7 mg/dL (2.5-4.9); POTASSIUM 3.8 mmol/L (3.5-5.1)
[2020-02-19 08:00] VITALS: BP 144/59
[2020-02-19] MEDS: GLIMEPIRIDE 4 MG TABLET PO SCH ×2 (09:00→17:18)
--- NOTE | 2020-02-19 09:00 | NUR ---
TELE/RN NOTE BS noted at 44, A&O x 3, no acute distress noted, VSS. Gave patient her breakfast, 1 orange juice, and 2 pieces of rodolfo crackers. Re-checked again in 20 minutes, patient's blood sugar went up to 108. Non-administered glimepiride 4 mg for breakfast due to decreased blood sugar.
--- NOTE | 2020-02-19 09:15 | NUR ---
TELE/RN NOTE Increased oxygen to 8 L via NC, saturating at 90-92%. Patient was desaturating to 88-89 on 5 L. Patient appears more comfortable without any respiratory distress.
[2020-02-19] MEDS: MONTELUKAST SODIUM (10MG) 10 MG TABLET PO SCH (09:16)
[2020-02-19] MEDS: DEXAMETHASONE SOD PHOSPHATE 10 MG/ML VIAL IV SCH (09:16)
[2020-02-19] MEDS: AMLODIPINE BESYLATE 5 MG TABLET PO SCH (09:17)
[2020-02-19] MEDS: METOPROLOL TARTRATE 50 MG TABLET PO SCH ×2 (09:18→21:40)
[2020-02-19] MEDS: LOSARTAN POTASSIUM 50 MG TABLET PO SCH (09:18)
[2020-02-19] MEDS: DOXYCYCLINE 100 MG in IV D5W 100 ML IV SCH ×2 (09:18→21:39)
[2020-02-19] MEDS: ENOXAPARIN SODIUM 30 MG/0.3 ML DISP.SYRIN SQ SCH ×2 (09:19→21:41)
--- NOTE | 2020-02-19 09:30 | NUR ---
TELE/RN NOTE Patient's IV access on LAC #22 g noted leaking, removed with catheter intact, placed pressure and clean dry dressing on top with tape. Inserted a new IV access on L hand #22g, patent and intact, blood return noted, and flushing well.
--- NOTE | 2020-02-19 11:00 | NUR ---
TELE/RN NOTE Patient desaturating to 84% on 8L oxygen via NC, placed on 10 L via face mask, now saturating at 90-92%. No respiratory distress noted.
[2020-02-19 12:00] VITALS: BP 102/60
--- NOTE | 2020-02-19 12:54 | NUR ---
TELE/RN NOTE Patient desaturating to 84-88% on 10L oxygen via face mask, placed on 15 L via non-rebreather mask, now saturating at 93-94%. No respiratory distress noted.
--- NOTE | 2020-02-19 13:30 | NUR ---
TELE/RN NOTE Patient remains stable on 15 L oxygen via non-rebreather mask, no respiratory distress noted. Breathing even and non-labored, saturating at 94-95%.
[2020-02-19 16:00] VITALS: BP 137/74
[2020-02-19] MEDS ORDERED: K PHOS NEUTRAL 250 MG TABLET PO ONE (16:30)
--- NOTE | 2020-02-19 18:49 | NUR ---
TELE/RN CLOSING NOTE Patient awake in bed, A&O x 3, Maori speaking. All needs met and attended to. No complaints of pain/discomfort throughout shift. Breathing even and non-labored on 15 L via NRB, saturating at 95-96. No respiratory or cardiac distress noted. On tele monitor, reading SR 99. IV access noted on L hand #22, patent and intact, and flushing well. Fall precautions maintained. Will endorse to night manager nurse.
[2020-02-19] MEDS: CEFTRIAXONE 1 G in IV D5W 50 ML IV SCH (19:09)
[2020-02-19 20:00] VITALS: BP 165/89
--- NOTE | 2020-02-19 20:57 | NUR ---
TELE-1/VALVE INSPECTOR ASSISTED DR. MCCLELLAND WITH MIDLINE PLACEMENT RIGHT UPPER ARM. PT TOLERATED WELL.
[2020-02-19] MEDS: ATORVASTATIN 40 MG TABLET PO SCH (21:40)
--- NOTE | 2020-02-19 21:53 | NUR ---
TELE-1/POULTRY VACCINATOR POC BLOOD GLUCOSE 238 PT REFUSING INSULIN AT THIS TIME. WILL CONTINUE TO MONITOR.
[2020-02-20] VITALS: BP 156/92
[2020-02-20] MEDS: BLOOD SUGAR DIAGNOSTIC 1 EACH STRIP IN SCH ×6 (00:43→21:46)
[2020-02-20] MEDS: INSULIN REGULAR, HUMAN 100 UNIT/ML 3 ML VIAL SQ PRN ×4 (00:47→21:49)
[2020-02-20 04:00] VITALS: BP 161/75
--- NOTE | 2020-02-20 07:30 | NUR ---
TELEVISION PRODUCTION CLERK NOTES PT IN BED, ASLEEP, EASY TO AROUSE, REMINDED PT TO ALWAYS KEEP HER MASK ON, NOT IN DISTRESS, NO SIGN OF PAIN, CALL LIGHT WITHIN REACH, KEPT WARM AND COMFORTABLE.
[2020-02-20 08:00] VITALS: BP 150/75
[2020-02-20 09:09] LABS: BASOPHILS % (AUTO) 0.1 % (0.0-2.0); HEMATOCRIT 42 % (33-45); HEMOGLOBIN 13.9 g/dL (11.5-14.8); LYMPHOCYTES # (AUTO) 0.7 /CMM (0.8-4.8); LYMPHOCYTES % (AUTO) 4.5 % (20.0-44.0); MEAN CORPUSCULAR HGB CONC 33 g/dl (31.0-36.0); MEAN CORPUSCULAR VOLUME 87 fL (82-100); MONOCYTES # (AUTO) 0.8 /CMM (0.1-1.30); MONOCYTES % (AUTO) 5.3 % (2.0-12.0); NEUTROPHILS % (AUTO) 90.1 % (43.0-81.0); PLATELET COUNT (AUTO) 314 /CMM (150-450); RED BLOOD CELL COUNT(AUTO) 4.85 MIL/uL (4.0-5.2); WHITE BLOOD COUNT (AUTO) 14.4 K/uL (4.3-11.0)
[2020-02-20] MEDS: DOXYCYCLINE 100 MG in IV D5W 100 ML IV SCH ×2 (09:32→21:32)
[2020-02-20 09:33] LABS: CALCIUM, SERUM 8.8 mg/dL (8.5-10.1); CREATININE 1.2 mg/dL (0.6-1.3); MAGNESIUM 1.9 mg/dL (1.8-2.4); PHOSPHORUS 2.5 mg/dL (2.5-4.9); POTASSIUM 3.8 mmol/L (3.5-5.1)
[2020-02-20] MEDS: PANTOPRAZOLE 40 MG TABLET.DR PO SCH (09:33)
[2020-02-20] MEDS: DEXAMETHASONE SOD PHOSPHATE 10 MG/ML VIAL IV SCH (09:33)
[2020-02-20] MEDS: GLIMEPIRIDE 4 MG TABLET PO SCH ×2 (09:33→17:03)
[2020-02-20] MEDS: MONTELUKAST SODIUM (10MG) 10 MG TABLET PO SCH (09:35)
[2020-02-20] MEDS: ENOXAPARIN SODIUM 30 MG/0.3 ML DISP.SYRIN SQ SCH ×2 (09:37→21:33)
[2020-02-20] MEDS: METOPROLOL TARTRATE 50 MG TABLET PO SCH ×2 (09:53→21:34)
[2020-02-20] MEDS: LOSARTAN POTASSIUM 50 MG TABLET PO SCH (09:53)
[2020-02-20] MEDS: AMLODIPINE BESYLATE 5 MG TABLET PO SCH (09:54)
[2020-02-20 12:00] VITALS: BP 161/84
[2020-02-20 16:00] VITALS: BP 147/71
--- NOTE | 2020-02-20 18:44 | NUR ---
SPECIAL EDUCATION EDUCATIONAL ASSISTANT NOTES PT IN BED, RESTING, ALERT AND VERBALLY RESPONSIVE, NO SIGN OF PAIN OR DISTRESS, ON 15L OF O2 VIA NRB MASK, REMINDED PT TO ALWAYS PUT ON HER MASK, PM CARE PROVIDED, ASSISTED TO BEDSIDE COMMODE, BS CHECKED, ALL NEEDS ATTENDED.
--- NOTE | 2020-02-20 19:10 | NUR ---
TAR BOILER OPENING NOTES RECEIVED PATIENT IN BED SLEEPING BUT EASILY AROUSABLE ,ALERT AND ORIENTED X2-3 RESPIRATIONS EVEN AND UNLABORED WITH EQUAL RISE AND FALL OF CHEST, ON 15 L VIA NRB MASK TOLERATING WELL, IV MIDLINE SITE TO RIGHT UPPER ARM INTACT AND PATENT, AND LEFT HAND #22 INTACT AND PATENT, NO REDNESS, NO INFILTRATION PRESENT, ORIENTED TO STAFF AND CALL LIGHT AND KEPT WITHIN REACH, SAFETY PRECAUTIONS MAINTAINED LOW BED AND LOCKED BED ALARM IN PLACE, WILL CONTINUE TO MONITOR AND ATTEND TO NEEDS.
[2020-02-20 20:00] VITALS: BP 154/79
[2020-02-20] MEDS: CEFTRIAXONE 1 G in IV D5W 50 ML IV SCH (20:14)
[2020-02-20] MEDS: ATORVASTATIN 40 MG TABLET PO SCH (21:32)
[2020-02-21] VITALS (7 sets, daily range): BP systolic 131–151; BP diastolic 66–86
[2020-02-21] MEDS: BLOOD SUGAR DIAGNOSTIC 1 EACH STRIP IN SCH ×6 (01:11→22:40)
[2020-02-21] MEDS: INSULIN REGULAR, HUMAN 100 UNIT/ML 3 ML VIAL SQ PRN ×3 (01:15→17:52)
--- NOTE | 2020-02-21 06:25 | NUR ---
LIFT ELECTRICIAN CLOSING NOTES PATIENT IN BED SLEEPING BUT EASILY AROUSABLE ,ALERT AND ORIENTED X2-3 RESPIRATIONS EVEN AND UNLABORED WITH EQUAL RISE AND FALL OF CHEST, ON 15 L VIA NRB MASK TOLERATING WELL, IV MIDLINE SITE TO RIGHT UPPER ARM INTACT AND PATENT, AND LEFT HAND #22 INTACT AND PATENT, NO REDNESS, NO INFILTRATION PRESENT, CALL LIGHT KEPT WITHIN REACH, SAFETY PRECAUTIONS MAINTAINED LOW BED AND LOCKED BED ALARM IN PLACE, BED SIDE COMMODE OFFERED , FLUIDS OFFERED, WILL CONTINUE TO MONITOR AND ATTEND TO NEEDS AND ENDORSE TO NEXT SHIFT, NO CHANGES NOTED THROUGH SHIFT.
[2020-02-21 07:17] LABS: BASOPHILS % (AUTO) 0.1 % (0.0-2.0); HEMATOCRIT 43 % (33-45); HEMOGLOBIN 14.2 g/dL (11.5-14.8); LYMPHOCYTES # (AUTO) 0.6 /CMM (0.8-4.8); LYMPHOCYTES % (AUTO) 5.9 % (20.0-44.0); MEAN CORPUSCULAR HGB CONC 33 g/dl (31.0-36.0); MEAN CORPUSCULAR VOLUME 87 fL (82-100); MONOCYTES # (AUTO) 0.8 /CMM (0.1-1.30); MONOCYTES % (AUTO) 7.5 % (2.0-12.0); NEUTROPHILS # (AUTO) 9.4 /CMM (1.8-8.9); NEUTROPHILS % (AUTO) 86.5 % (43.0-81.0); PLATELET COUNT (AUTO) 348 /CMM (150-450); RED BLOOD CELL COUNT(AUTO) 4.94 MIL/uL (4.0-5.2); WHITE BLOOD COUNT (AUTO) 10.9 K/uL (4.3-11.0)
--- NOTE | 2020-02-21 07:30 | NUR ---
RN OPENING NOTE PT IS A/OX3, IN BED RESTING COMFORTABLY ON NRB @ 15LPM, NO SIGNS OF RESP DISTRESS OR SOB, SPO2 AT 94%. PT HAS TRUE MIDLINE AND L HAND #22 BOTH SL, FLUSHED INTACT AND PATENT WITH NO SIGNS OF INFECTION OR INFILTRATION. ALL PT SAFETY PRECAUTIONS IN PLACE. WILL CONTINUE TO MONITOR
[2020-02-21 07:44] LABS: CALCIUM, SERUM 8.7 mg/dL (8.5-10.1); CREATININE 1.1 mg/dL (0.6-1.3); PHOSPHORUS 2.2 mg/dL (2.5-4.9); POTASSIUM 3.8 mmol/L (3.5-5.1)
[2020-02-21] MEDS: DOXYCYCLINE 100 MG in IV D5W 100 ML IV SCH ×2 (09:45→22:30)
[2020-02-21] MEDS: DEXAMETHASONE SOD PHOSPHATE 10 MG/ML VIAL IV SCH (09:45)
[2020-02-21] MEDS: PANTOPRAZOLE 40 MG TABLET.DR PO SCH (09:46)
[2020-02-21] MEDS: GLIMEPIRIDE 4 MG TABLET PO SCH ×2 (09:46→17:38)
[2020-02-21] MEDS: MONTELUKAST SODIUM (10MG) 10 MG TABLET PO SCH (09:46)
[2020-02-21] MEDS: ENOXAPARIN SODIUM 30 MG/0.3 ML DISP.SYRIN SQ SCH ×2 (09:50→22:11)
[2020-02-21] MEDS: AMLODIPINE BESYLATE 5 MG TABLET PO SCH (09:51)
[2020-02-21] MEDS: LOSARTAN POTASSIUM 50 MG TABLET PO SCH (09:51)
[2020-02-21] MEDS: METOPROLOL TARTRATE 50 MG TABLET PO SCH ×2 (09:52→22:09)
--- NOTE | 2020-02-21 11:00 | NUR ---
RN NOTE FOUND PT WITH NRB OFF AND IMMEDIATELY PLACED NRB BACK ON. SPO2 WAS IN MID 70s%. PT LOOKED FINE WITH NO SIGNS OF RESP DISTRESS. STAYED WITH PT UNTIL SPO2 CAME BACK TO 93% WITHIN 2 MINUTES AND EXPLAINED TO PT THE IMPORTANCE OF KEEPING NRB ON, PT ACKNOWLEGDED UNDERSTANDING OF TEACHING
[2020-02-21 12:17] LABS: ALBUMIN 2.3 g/dL (3.4-5.0); BILIRUBIN,DIRECT 0.5 mg/dL (0.0-0.2); BILIRUBIN,TOTAL 0.8 mg/dL (0.2-1.0); TOTAL PROTEIN, SERUM 7.3 g/dL (6.4-8.2)
--- NOTE | 2020-02-21 19:00 | NUR ---
RN CLOSING NOTE NO CHANGES TO PT STATUS. PT IN STABLE CONDITION. WILL ENDORSE XIOMARA TO ONCOMING NURSE
--- NOTE | 2020-02-21 19:30 | NUR ---
RN NOTES RECEIVED PT IN BED, BREATHING EVEN AND UNLABORED. ON NON REBREATHER 15L, SATING AT 93 %, TOLERATING WELL. ALERT AND ORIENTED X4. TELE MONITOR SHOWS SR. TRUE MIDLINE AND LEFT HAND IV FLUSHING GOOD. NO SIGNS OF INFILTRATION. ALL SAFETY MEASURES IMPLEMENTED PER PROTOCOL. CALL LIGHT WITHIN REACH. BED LOCKED IN LOWEST POSITION. SIDE RAILS UP X 2.
[2020-02-21] MEDS: CEFTRIAXONE 1 G in IV D5W 50 ML IV SCH (21:52)
[2020-02-21] MEDS: ATORVASTATIN 40 MG TABLET PO SCH (22:09)
--- NOTE | 2020-02-21 22:23 | NUR ---
RN NOTES CALLED PTS DAUGHTER, MICHOACANO ANDRWES, GIVE TELEPHONE CONSENT FOR CONVALESCENT PLASMA. CONFIRMED WITH OTHER RN.
[2020-02-22] VITALS (12 sets, daily range): BP systolic 116–153; BP diastolic 50–76
--- NOTE | 2020-02-22 | NUR ---
RN NOTES CONVALESCENT PLASMA TRANSFUSION STARTED, VS 140/86 RR 20 HR 76 T 98.4. WILL CONTINUE TO MONITOR.
--- NOTE | 2020-02-22 00:15 | NUR ---
RN NOTES PT RECEIVING CONVALESCENT PLASMA, NO REACTIONS NOTED. NO DISTRESS NOTED. BP 139/74 HR 74 R 20.
[2020-02-22] MEDS: BLOOD SUGAR DIAGNOSTIC 1 EACH STRIP IN SCH ×6 (01:40→20:33)
[2020-02-22] MEDS: INSULIN REGULAR, HUMAN 100 UNIT/ML 3 ML VIAL SQ PRN ×4 (01:41→20:39)
--- NOTE | 2020-02-22 02:55 | NUR ---
RN NOTES PT S/P CONVALESCENT PLASMA TRANSFUSION. NO REACTIONS NOTED. PATIENT VERBALLY RESPONDING, DENIES ANY PAIN DENIES SOB. NO DISTRESS NOTED. BP 122/55 R 20 HR 77 T 97.6.
[2020-02-22 06:09] LABS: BASOPHILS % (AUTO) 0.1 % (0.0-2.0); HEMATOCRIT 39 % (33-45); HEMOGLOBIN 12.8 g/dL (11.5-14.8); LYMPHOCYTES # (AUTO) 0.6 /CMM (0.8-4.8); LYMPHOCYTES % (AUTO) 7.1 % (20.0-44.0); MEAN CORPUSCULAR HGB CONC 33 g/dl (31.0-36.0); MEAN CORPUSCULAR VOLUME 88 fL (82-100); MONOCYTES # (AUTO) 0.8 /CMM (0.1-1.30); MONOCYTES % (AUTO) 9.3 % (2.0-12.0); NEUTROPHILS # (AUTO) 7.1 /CMM (1.8-8.9); NEUTROPHILS % (AUTO) 83.5 % (43.0-81.0); PLATELET COUNT (AUTO) 319 /CMM (150-450); RED BLOOD CELL COUNT(AUTO) 4.44 MIL/uL (4.0-5.2); WHITE BLOOD COUNT (AUTO) 8.5 K/uL (4.3-11.0)
[2020-02-22 06:23] LABS: CALCIUM, SERUM 8.4 mg/dL (8.5-10.1); CARBON DIOXIDE 27 mmol/L (21-32); CHLORIDE 105 mmol/L (98-107); CREATININE 1.1 mg/dL (0.6-1.3); GLUCOSE 170 mg/dL (74-106); MAGNESIUM 2.1 mg/dL (1.8-2.4); PHOSPHORUS 2.1 mg/dL (2.5-4.9); POTASSIUM 3.4 mmol/L (3.5-5.1); SODIUM SERUM 140 mmol/L (136-145); UREA NITROGEN, BLOOD 39 mg/dL (7-18)
--- NOTE | 2020-02-22 07:20 | NUR ---
RN CLOSING NOTES PT CONTINUE ON NONREBREATHER AT 15L, TOLERATING WELL. NOT IN ANY ACUTE DISTRESS. MIDLINE ON TRUE AND IV ON LH PATENT AND INTACT. ISOLATION PRECAUTION MAINTAINED. ALL SAFETY MEASURES IMPLEMENTED PER PROTOCOL. CALL LIGHT WITHIN REACH. BED LOCKED IN LOWEST POSITION. SIDE RAILS UP X 2. WILL ENDORSE TO UPCOMING NURSE FOR XIOMARA.
--- NOTE | 2020-02-22 07:30 | NUR ---
TELE/RN OPENING NOTE Received patient resting in bed, A&O x 3, Palestinian speaking. Denies any pain/discomfort at this time. On 15 L non-rebreather mask, breathing even and non-labored. No respiratory or cardiac distress noted. On tele monitor, reading SR 66. TRUE midline access and L hand #22 g IV access noted, both patent and intact, and flushing well. Bed locked to its lowest position, side rails x 2 up, call light in hand. Will continue current medical management.
[2020-02-22] MEDS: PANTOPRAZOLE 40 MG TABLET.DR PO SCH (09:01)
[2020-02-22] MEDS: MONTELUKAST SODIUM (10MG) 10 MG TABLET PO SCH (09:01)
[2020-02-22] MEDS: METOPROLOL TARTRATE 50 MG TABLET PO SCH ×2 (09:01→20:34)
[2020-02-22] MEDS: DEXAMETHASONE SOD PHOSPHATE 10 MG/ML VIAL IV SCH (09:02)
[2020-02-22] MEDS: AMLODIPINE BESYLATE 5 MG TABLET PO SCH (09:02)
[2020-02-22] MEDS: GLIMEPIRIDE 4 MG TABLET PO SCH ×2 (09:02→16:48)
[2020-02-22] MEDS: LOSARTAN POTASSIUM 50 MG TABLET PO SCH (09:02)
[2020-02-22] MEDS: ENOXAPARIN SODIUM 30 MG/0.3 ML DISP.SYRIN SQ SCH ×2 (09:03→20:37)
[2020-02-22] MEDS: DOXYCYCLINE 100 MG in IV D5W 100 ML IV SCH ×2 (09:03→20:56)
[2020-02-22] MEDS ORDERED: POTASSIUM CHLORIDE 20 MEQ TAB.PRT.SR PO ONE (09:30)
[2020-02-22] MEDS ORDERED: K PHOS NEUTRAL 250 MG TABLET PO ONE (13:30)
--- NOTE | 2020-02-22 18:33 | NUR ---
TELE/RN CLOSING NOTE Patient sleeping in bed, A&O x 3, easily arousable to tactile and verbal stimulation. All needs met and attended to. Denies any pain/discomfort throughout shift. On 15 L non-rebreather mask, breathing even and non-labored. No respiratory or cardiac distress noted. On tele monitor, reading SR 66. TRUE midline access and L hand #22 g IV access noted, both remain patent and intact, and flushing well. Fall precautions maintained. Will endorse to tobacco hanger nurse.
--- NOTE | 2020-02-22 20:00 | NUR ---
RN NOTES RECEIVED PT IN BED, BREATHING EVEN AND UNLABORED. ON NON REBREATHER 15L, TOLERATING WELL. TRUE MIDLINE AND LEFT HAND IV FLUSHING GOOD. NO SIGNS OF INFILTRATION. ALL SAFETY MEASURES IMPLEMENTED PER PROTOCOL. CALL LIGHT WITHIN REACH. BED LOCKED IN LOWEST POSITION.
[2020-02-22] MEDS: CEFTRIAXONE 1 G in IV D5W 50 ML IV SCH (20:12)
[2020-02-22] MEDS: ATORVASTATIN 40 MG TABLET PO SCH (21:09)
[2020-02-23 00:25] VITALS: BP 130/69
[2020-02-23] MEDS: BLOOD SUGAR DIAGNOSTIC 1 EACH STRIP IN SCH ×6 (00:41→21:42)
[2020-02-23] MEDS: INSULIN REGULAR, HUMAN 100 UNIT/ML 3 ML VIAL SQ PRN ×5 (00:43→21:45)
[2020-02-23 04:00] VITALS: BP 135/80
[2020-02-23 06:36] LABS: BASOPHILS % (AUTO) 0.1 % (0.0-2.0); HEMATOCRIT 40 % (33-45); HEMOGLOBIN 13.3 g/dL (11.5-14.8); LYMPHOCYTES # (AUTO) 0.8 /CMM (0.8-4.8); LYMPHOCYTES % (AUTO) 9.3 % (20.0-44.0); MEAN CORPUSCULAR HGB CONC 33 g/dl (31.0-36.0); MEAN CORPUSCULAR VOLUME 87 fL (82-100); MONOCYTES # (AUTO) 0.8 /CMM (0.1-1.30); MONOCYTES % (AUTO) 8.9 % (2.0-12.0); NEUTROPHILS # (AUTO) 7.2 /CMM (1.8-8.9); NEUTROPHILS % (AUTO) 81.7 % (43.0-81.0); PLATELET COUNT (AUTO) 340 /CMM (150-450); RED BLOOD CELL COUNT(AUTO) 4.59 MIL/uL (4.0-5.2); WHITE BLOOD COUNT (AUTO) 8.9 K/uL (4.3-11.0)
--- NOTE | 2020-02-23 06:41 | NUR ---
RN CLOSING NOTES PT CONTINUE ON NONREBREATHER AT 15L, TOLERATING WELL. NOT IN ANY ACUTE DISTRESS NOTED AT THIS TIME. MIDLINE ON TRUE PATENT AND INTACT. ISOLATION PRECAUTION MAINTAINED. ALL SAFETY MEASURES IMPLEMENTED PER PROTOCOL. CALL LIGHT WITHIN REACH. WILL ENDORSE TO UPCOMING NURSE FOR CONTINUTY OF CARE.
[2020-02-23 06:45] LABS: CALCIUM, SERUM 8.8 mg/dL (8.5-10.1); MAGNESIUM 1.9 mg/dL (1.8-2.4); PHOSPHORUS 3.2 mg/dL (2.5-4.9); POTASSIUM 3.7 mmol/L (3.5-5.1)
--- NOTE | 2020-02-23 07:15 | NUR ---
JACKERMAN OPENING NOTES PATIENT IS IN BED RESTING, ABLE TO BE AWAKENED. BREATHING EVEN AND UNLABORED, ON NONREBREATHER MASK AT 15L, NO SOB NOR RESPIRATORY DISTRESS. TRUE MIDLINE INTACT AND PATENT. SAFETY MEASURES IN PLACE: BED LOCKED AND IN LOWEST POSITION, SR UP X2, CALL LIGHT WITHIN REACH. WILL CONTINUE TO MONITOR.
[2020-02-23] MEDS: PANTOPRAZOLE 40 MG TABLET.DR PO SCH (07:52)
[2020-02-23 08:00] VITALS: BP 149/68
[2020-02-23] MEDS: GLIMEPIRIDE 4 MG TABLET PO SCH ×2 (09:00→17:14)
[2020-02-23] MEDS: ENOXAPARIN SODIUM 30 MG/0.3 ML DISP.SYRIN SQ SCH ×2 (11:15→20:35)
[2020-02-23] MEDS: DEXAMETHASONE SOD PHOSPHATE 10 MG/ML VIAL IV SCH (11:16)
[2020-02-23] MEDS: DOXYCYCLINE 100 MG in IV D5W 100 ML IV SCH (11:17)
[2020-02-23] MEDS: LOSARTAN POTASSIUM 50 MG TABLET PO SCH (11:17)
[2020-02-23] MEDS: MONTELUKAST SODIUM (10MG) 10 MG TABLET PO SCH (11:17)
[2020-02-23] MEDS: METOPROLOL TARTRATE 50 MG TABLET PO SCH ×2 (11:18→20:58)
[2020-02-23] MEDS: AMLODIPINE BESYLATE 5 MG TABLET PO SCH (11:18)
--- NOTE | 2020-02-23 11:30 | NUR ---
RN NOTES SPOKE W/ LONG, SON, AND MARIN DTR, AND MADE AWARE OF PATIENT'S CONDITION AND PROGRESS.
[2020-02-23 12:00] VITALS: BP 132/84
--- NOTE | 2020-02-23 15:03 | NUR ---
RN NOTES RECEIVED FOOD BROUGHT BY SON/DTR FOR PATIENT. PATIENT WAS ABLE TO EAT HALF A BOWL OF PORRIDGE AND A BANANA. NO SOB NOTED. CONTINUES ON NRM AT 15LPM; SOME DESATURATION NOTED UPON EXERTION BUT NO RESPIRATORY DISTRESS.
[2020-02-23 16:00] VITALS: BP 141/77
[2020-02-23] MEDS: ACETAMINOPHEN 325 MG TABLET PO PRN (17:00)
--- NOTE | 2020-02-23 19:15 | NUR ---
ACTUARIAL INTERNSHIP CLOSING NOTES PATIENT IS IN BED RESTING, AWAKE AND VERBALLY RESPONSIVE. BREATHING EVEN AND UNLABORED, CONTINUES ON NONREBREATHER MASK AT 15L, NO SOB NOTED. TRUE MIDLINE INTACT AND PATENT. ASSISTED W/ FEEDING TOLERATED. ABLE TO USE BEDSIDE COMMODE, MINIMAL DESATURATION NOTED BUT NO COMPLAINT OF SOB. SPOKE W/ LONG, PATIENT'S SON, AND PROVIDED UPDATE DURING THE SHIFT. SAFETY MEASURES MAINTAINED: BED LOCKED AND IN LOWEST POSITION, SR UP X2, CALL LIGHT WITHIN REACH. ENDORSED TO TEA PLANTATION WORKER RN FOR XIOMARA.
--- NOTE | 2020-02-23 19:30 | NUR ---
TELE/RN OPENING NOTE Received patient resting in bed, A&O x 3, Dominican speaking. Denies any pain/discomfort at this time. On 15 L non-rebreather mask, breathing even and non-labored. No respiratory distress noted.SPO2 90% On tele monitor, reading SR 66. TRUE midline access and L hand #22 g IV access noted, both patent and intact, and flushing well. Bed locked to its lowest position, side rails x 2 up, call light in hand. Will cont to monitor
[2020-02-23 20:00] VITALS: BP 126/61
[2020-02-23] MEDS: ATORVASTATIN 40 MG TABLET PO SCH (21:49)
[2020-02-24] VITALS: BP 116/64
--- NOTE | 2020-02-24 00:15 | NUR ---
BLOOD SUGAR 33 RECHECKED ITS 31 D50/50 GIVEN IVP ORDERED, PT IS EASY TO AWAKE, ABLE TO SWALLOW THE APPLE SAUCE WITH SUGAR WILL RECHECKED BLOOD SUGAR AFTER AN HOUR
[2020-02-24] MEDS: DEXTROSE 50%-WATER 50 ML DISP.SYRIN IV PRN (00:17)
[2020-02-24] MEDS: BLOOD SUGAR DIAGNOSTIC 1 EACH STRIP IN SCH ×6 (00:24→22:44)
[2020-02-24] MEDS: INSULIN REGULAR, HUMAN 100 UNIT/ML 3 ML VIAL SQ PRN ×4 (00:25→17:00)
--- NOTE | 2020-02-24 01:06 | NUR ---
BLOOD SUGAR RECHECKED 138 WILL CONT TO MONITOR THE PT
[2020-02-24 04:00] VITALS: BP 144/73
--- NOTE | 2020-02-24 04:37 | NUR ---
BLOOD SUGAR IS 44 ON FIRST CHECKED, RECHECKED AFTERWARD ON DIFFERENT SITE WITH RESULT OF 139, INSULIN NON ADMIN DUE TO EPISODE OF HYPOGLYCEMIA
[2020-02-24 06:30] LABS: CALCIUM, SERUM 8.9 mg/dL (8.5-10.1); CREATININE 1.1 mg/dL (0.6-1.3); MAGNESIUM 1.9 mg/dL (1.8-2.4); PHOSPHORUS 3.5 mg/dL (2.5-4.9); POTASSIUM 3.8 mmol/L (3.5-5.1)
[2020-02-24 06:36] LABS: BASOPHILS % (AUTO) 0.1 % (0.0-2.0); HEMATOCRIT 40 % (33-45); HEMOGLOBIN 13.1 g/dL (11.5-14.8); LYMPHOCYTES # (AUTO) 0.5 /CMM (0.8-4.8); LYMPHOCYTES % (AUTO) 4.7 % (20.0-44.0); MEAN CORPUSCULAR HGB CONC 33 g/dl (31.0-36.0); MEAN CORPUSCULAR VOLUME 87 fL (82-100); MONOCYTES # (AUTO) 0.3 /CMM (0.1-1.30); MONOCYTES % (AUTO) 3.1 % (2.0-12.0); NEUTROPHILS # (AUTO) 10.2 /CMM (1.8-8.9); NEUTROPHILS % (AUTO) 92.1 % (43.0-81.0); PLATELET COUNT (AUTO) 254 /CMM (150-450); RED BLOOD CELL COUNT(AUTO) 4.61 MIL/uL (4.0-5.2)
--- NOTE | 2020-02-24 07:00 | NUR ---
PT AWAKE IN BED W HOB ELEVATED. A/OX3. SR IN TELE. SKIN WARM FLUSHED AND NO SIGNS OF RESP DISTRESS WITH NON REBREATHER AT 15L/MIN ORDERED. L HAND IV AND TRUE MIDLINE INTACT. FLUSHED. DRESSING DRY INTACT. WILL MONITOR RESP STATUS Q1H AND NEEDED. WILL MONITOR RESPONSE TO TREATMENTS NEEDED AND REPORT TO MD NEEDED. ALL HOSPITAL POLICY SAFETY PRECAUTIONS IMPLEMENTED. RAILS UPX2, BED LOCKED, LOW, CALL LIGHT IN REACH.
--- NOTE | 2020-02-24 07:36 | NUR ---
TELE/RN CLOSING NOTE Patient sleeping in bed, A&O x 3, easily arousable to tactile and verbal stimulation. All needs met and attended to. Denies any pain/discomfort throughout shift. On 15 L non-rebreather mask, breathing even and non-labored. No respiratory distress noted.SPO2@90-93% On tele monitor, reading SR 66. TRUE midline access and L hand #22 g IV access noted, both remain patent and intact, and flushing well. Fall precautions maintained. Will endorse to AM shift nurse.
[2020-02-24 08:00] VITALS: BP 153/80
--- NOTE | 2020-02-24 08:16 | NUR ---
RN OPENING NOTE RECEIVED PATIENT IN BED WITH HOB RAISED TO SEMI FOWLERS. PATIENT IS A0X3. NON REBREATHER MASK IS AT 15L. BED GAMA IS AT BEDSIDE. SKIN IS INTACT. L HAND #22 AND TRUE MIDLINE ARE INTACT, PATENT, AND HAVE NO SIGNS OF INFILTRATION. BED IS IN THE LOWEST POSITION, 3 SIDE RAILS RAISED, CALL CASTRO WITHIN REACH, AND ALL HOSPITAL SAFETY PRECAUTIONS ARE BEING FOLLOWED. WILL CONTINUE TO MONITOR THROUGHOUT SHIFT.
[2020-02-24] MEDS: ENOXAPARIN SODIUM 30 MG/0.3 ML DISP.SYRIN SQ SCH ×2 (08:55→22:49)
[2020-02-24] MEDS: DEXAMETHASONE SOD PHOSPHATE 10 MG/ML VIAL IV SCH (08:55)
[2020-02-24] MEDS: PANTOPRAZOLE 40 MG TABLET.DR PO SCH (08:56)
[2020-02-24] MEDS: GLIMEPIRIDE 4 MG TABLET PO SCH ×2 (08:56→09:00)
[2020-02-24] MEDS: MONTELUKAST SODIUM (10MG) 10 MG TABLET PO SCH (08:56)
[2020-02-24] MEDS: AMLODIPINE BESYLATE 5 MG TABLET PO SCH (08:57)
[2020-02-24] MEDS: LOSARTAN POTASSIUM 50 MG TABLET PO SCH (08:58)
[2020-02-24] MEDS: METOPROLOL TARTRATE 50 MG TABLET PO SCH ×2 (08:58→22:48)
--- NOTE | 2020-02-24 09:12 | NUR ---
HELD ORDERED GLIMEPRIDE PT EXPERIENCED PERIODS OF HYPOGLYCEMIA LAST NIGHT REPORTED BY PM RN. WILL MAKE MD AWARE. AWAIT ORDERS.
[2020-02-24] MEDS: GLUCERNA SHAKE 237 ML CAN PO SCH ×3 (09:57→17:07)
[2020-02-24 12:00] VITALS: BP 104/80
[2020-02-24] MEDS: ACETAMINOPHEN 325 MG TABLET PO PRN (13:35)
[2020-02-24 16:00] VITALS: BP 124/82
--- NOTE | 2020-02-24 19:18 | NUR ---
PT AWAKE IN BED W HOB ELEVATED. A/OX3. SR IN TELE. SKIN WARM FLUSHED AND NO SIGNS OF RESP DISTRESS WITH NON REBREATHER AT 15L/MIN ORDERED. L HAND IV AND TRUE MIDLINE INTACT. FLUSHED. DRESSING DRY INTACT. MONITORED RESP STATUS Q1H AND NEEDED. MONITORED RESPONSES TO TREATMENTS NEEDED AND REPORTED TO MD NEEDED. ALL HOSPITAL POLICY SAFETY PRECAUTIONS IMPLEMENTED. RAILS UPX2, BED LOCKED, LOW, CALL LIGHT IN REACH. ALL ORDERS IMPLEMENTED. ENDORSED TO PM RN.
--- NOTE | 2020-02-24 19:50 | NUR ---
RN OPENING NOTES RECEIVED PT IN BED. RESTING A/O X 2-3. PT IS POLISH SPEAKING, MINIMAL HEBREW. PT IS ON 15L OF O2 VIA NRB MASK. TOLERATING WELL. NO S./S OF SOB OR RESP DISTRESS NOTED. SATURATING 95% AT THIS TIME. PT IS ON CARDIAC MONITORING, PRESENTS WITH NSR WITH A HR OF 71 AT THIS TIME. IV SITE, TRUE MIDLINE FLUSHED, PATENT. LEFT HAND IV SITE OCCLUDDED, WILL REMOVE. SAFETY MEASURES IN PLACE. HOB ELEVATED. SIDE RAILS UP X3. BED IS LOCKED IN LOWEST POSITION WITH BED ALARM ON. CALL LIGHT WITHIN REACH. WILL CONTINUE TO MONITOR.
[2020-02-24 20:00] VITALS: BP 124/76
[2020-02-24] MEDS: ATORVASTATIN 40 MG TABLET PO SCH (22:48)
[2020-02-25] VITALS: BP 118/65
[2020-02-25] MEDS: BLOOD SUGAR DIAGNOSTIC 1 EACH STRIP IN SCH ×6 (01:20→21:56)
[2020-02-25 04:00] VITALS: BP 126/73
[2020-02-25 06:52] LABS: HEMATOCRIT 41 % (33-45); HEMOGLOBIN 13.3 g/dL (11.5-14.8); LYMPHOCYTES # (AUTO) 0.7 /CMM (0.8-4.8); LYMPHOCYTES % (AUTO) 4.7 % (20.0-44.0); MEAN CORPUSCULAR HGB CONC 33 g/dl (31.0-36.0); MEAN CORPUSCULAR VOLUME 88 fL (82-100); MONOCYTES # (AUTO) 0.4 /CMM (0.1-1.30); MONOCYTES % (AUTO) 2.3 % (2.0-12.0); NEUTROPHILS # (AUTO) 14.7 /CMM (1.8-8.9); PLATELET COUNT (AUTO) 260 /CMM (150-450); RED BLOOD CELL COUNT(AUTO) 4.67 MIL/uL (4.0-5.2); WHITE BLOOD COUNT (AUTO) 15.8 K/uL (4.3-11.0)
[2020-02-25 07:01] LABS: CREATININE 1.1 mg/dL (0.6-1.3); PHOSPHORUS 4.4 mg/dL (2.5-4.9); POTASSIUM 4.4 mmol/L (3.5-5.1)
--- NOTE | 2020-02-25 07:05 | NUR ---
RN CLOSING NOTES NO SIGNIFICANT CHANGES, PT BECAME MORE ALERT THE NIGHT WENT ON. STILL ON 15L OF O2 VIA NONREBREATHER MASK, TOLERATING WELL. NO SOB OR RESP DISTRESS NOTED. SATURATING WELL 92-96%. DISCOURAGE BED SIDE COMMODE, ENCOURAGE BED GAMA PT TENDS TO DESAT. ALL NEEDS ATTENDED AT THIS TIME.ENCOURAGE FLUID AND PO INTAKE. SAFETY MEASURES IN PLACE, HOB ELEVATED TOLERATED. SIDE RAILS UP X2. BED LOCKED IN LOWEST POSITION. CALL LIGHT WITHIN REACH. WILL ENDORSE TO AM NURSE FOR CONTINUATION OF CARE.
[2020-02-25 07:07] LABS: MAGNESIUM 1.8 mg/dL (1.8-2.4)
--- NOTE | 2020-02-25 07:36 | NUR ---
RN OPENING NOTES PATIENT RECEIVED IN BED [id number] EASILY AWAKEN BY NAME, ALERT AND ORIENTED 2-3 VINCENTIAN SPEAKING. ON NON-REBREATHER 15 LITERS AT THIS TIME. IV ACCESS INTACT AND PATENT. SKIN WARM AND DRY TO TOUCH. PATIENT DENIES ANY PAIN OR DISCOMFORT AT THIS TIME. SAFETY PRECAUTIONS IMPLEMENTED WITH BED LOCKED, BILATERAL SIDE RAILS UP, BED IN THE LOWEST POSITION, AND CALL LIGHT WITHIN EASY REACH. WILL CONTINUE TO MONITOR PATIENT.
[2020-02-25 08:00] VITALS: BP 149/79
[2020-02-25] MEDS: DEXAMETHASONE SOD PHOSPHATE 10 MG/ML VIAL IV SCH (08:15)
[2020-02-25] MEDS: MONTELUKAST SODIUM (10MG) 10 MG TABLET PO SCH (08:15)
[2020-02-25] MEDS: AMLODIPINE BESYLATE 5 MG TABLET PO SCH (08:15)
[2020-02-25] MEDS: LOSARTAN POTASSIUM 50 MG TABLET PO SCH (08:16)
[2020-02-25] MEDS: METOPROLOL TARTRATE 50 MG TABLET PO SCH ×2 (08:16→21:27)
[2020-02-25] MEDS: PANTOPRAZOLE 40 MG TABLET.DR PO SCH (08:16)
[2020-02-25] MEDS: ENOXAPARIN SODIUM 30 MG/0.3 ML DISP.SYRIN SQ SCH ×2 (08:18→21:29)
[2020-02-25] MEDS: GLUCERNA SHAKE 237 ML CAN PO SCH ×3 (08:29→16:23)
[2020-02-25] MEDS: INSULIN REGULAR, HUMAN 100 UNIT/ML 3 ML VIAL SQ PRN ×4 (08:32→21:57)
[2020-02-25 11:21] LABS: ABG BASE EXCESS 0.8 mmol/L; ABG OXYGEN SATURATION 87.2 % (92.0-98.5); ABG PCO2 33.8 mmHg (35.0-45.0); ABG PH 7.468 (7.350-7.450); AaDO2 628.2 mmHg; COHb 0.8 % (0.5-1.5); MetHb 0.3 % (0.0-1.5); O2Hb 86.2 % (94.0-97.0); SITE, ABG Left Radial; VENT MODE, BG NRB 100%
[2020-02-25 12:00] VITALS: BP 145/72
--- NOTE | 2020-02-25 12:10 | NUR ---
RN NOTES PER DR. BURGOS, ADD HIGH FLOW NASAL CANNULA 60 LITERS, 100% WITH NON-REBREATHER MASK OF 15 LITERS. WILL CONTINUE TO MONITOR PATIENT.
[2020-02-25 16:00] VITALS: BP 139/71
--- NOTE | 2020-02-25 17:50 | NUR ---
RN NOTES SPOKE WITH DR. BERMAN, INFORMED ABOUT PATIENT'S FAMILY MEMBER AND FAMILY PRIMARY CARE PROVIDER DR OAKLEY CONCERNS, AND KEPT ASKING ABOUT REMDESIVIR. PER DR BERMAN OKAY TO START MEDICATION. WILL CARRY OUT ORDERS AND CONTINUE TO MONITOR PATIENT.
--- NOTE | 2020-02-25 18:45 | NUR ---
RN NOTES SPOKE WITH DR HIDALGO, INFORMED PATIENT KEPT REMOVING HIGH FLOW NC AND NRB MASK AND DESATURATES, PROVIDED COMFORT MEASURES TO PATIENT AND INCREASED MONITORING AND PATIENT KEPT REMOVING MASK AND NASAL CANNULA, RECEIVED AN ORDER FOR BILATERAL SOFT WRIST RESTRAINTS WILL CARRY OUT ORDERS AND CONTINUE TO MONITOR PATIENT.
--- NOTE | 2020-02-25 19:26 | NUR ---
COTTON PROGRAM TECHNICIAN NOTES PATIENT IN BED RESTING COMFORTABLY, APPLIED BILATERAL SOFT WRIST RESTRAINTS DUE TO PATIENT REMOVING EQUIPMENT MULTIPLE TIMES, AND RE-DIRECTED AND EDUCATED THE PATIENT MULTIPLE TIMES, PATIENT STILL NON-COMPLAINT. SKIN WNL, WITH ADEQUATE CIRCULATION PRESENT. ON NRB 15 LITERS AND HIGH FLOW NASAL CANNULA AT 60LPM. ON DIRECTOR OF ALUMNI RELATIONS SR. IV ACCESS INTACT AND PATENT MET ALL OF PATIENT'S NEEDS. SKIN KEPT WARM, CLEAN AND DRY. PATIENT PRESENTING WITH NO PAIN OR DISCOMFORT AT THIS TIME. SAFETY PRECAUTIONS IMPLEMENTED WITH BED LOCKED, BILATERAL SIDE RAILS UP, BED ALARM ON, AND CALL LIGHT WITHIN EASY REACH. WILL ENDORSE PLAN OF CARE TO UPCOMING RN.
--- NOTE | 2020-02-25 19:30 | NUR ---
RN NOTES RECEIVED PT; A/OX 2-3 IN BED RESTING COMFORTABLY. PATIENT IN NO S/SX OF ACUTE DISTRESS AT THIS TIME. NO SOB NOTED. PATIENT'S BREATHING IS EVEN AND UNLABORED. PATIENT IS ON 15L OF OXYGEN VIA NRB MASK AND HIGH FLOW VIA NC @60LPM; TOLERATING WELL.PATIENT ON TELE MONITORING READING SINUS RHYTHM HR IS @870s AT THE TIME OF RECEIVED NOTED IV SITE ON R UA MIDLINE;PATENT, INTACT AND FLUSHING WELL; NO S/S OF INFECTION OR INFILTRATION. PT ON SOFT DIET.SAFETY MEASURES HAVE BEEN PROVIDED AND IMPLEMENTED. PATIENT BED ALARM IS ON. HEAD OF BED ELEVATED. BED IS LOCKED, IN LOWEST POSITION AND SIDE RAILS UP. CALL LIGHT WITHIN REACH OF THE PATIENT. APPLICABLE ISOLATION PRECAUTIONS IN PLACE. WILL CONTINUE TO MONITOR AND REASSESS FOR ANY CHANGES AND WILL CARRY OUT ANY ONGOING AND ACTIVE MD ORDER.
[2020-02-25 19:38] LABS: D-DIMER 4.17 mg/L(FEU (0.17-0.50)
[2020-02-25 19:47] LABS: BILIRUBIN,DIRECT 0.4 mg/dL (0.0-0.2); BILIRUBIN,TOTAL 0.7 mg/dL (0.2-1.0)
[2020-02-25 20:00] VITALS: BP 120/87
[2020-02-25 20:21] LABS: C-REACTIVE PROTEIN 9.7 mg/dL (0.0-0.9)
[2020-02-25] MEDS ORDERED: REMDESIVIR (CHARGED) 200 MG, *LOADING DOSE 1 EA in IV NS 0.9% 210 ML IV ONE (21:00)
[2020-02-25] MEDS: ATORVASTATIN 40 MG TABLET PO SCH (21:27)
[2020-02-25] MEDS ORDERED: BLOOD SUGAR DIAGNOSTIC 1 EACH STRIP IN SCH (22:30)
[2020-02-25] MEDS ORDERED: INSULIN REGULAR, HUMAN 100 UNIT/ML 3 ML VIAL SQ PRN (22:30)
[2020-02-25] MEDS ORDERED: DEXTROSE 50%-WATER 50 ML DISP.SYRIN IV PRN (22:30)
--- NOTE | 2020-02-25 23:00 | NUR ---
RN NOTES PATIENT REMAINS IN NO ACUTE RESPIRATORY DISTRESS AT THIS TIME, NO CHANGES TO CONDITION/STATUS. MEDICAL AND SCIENTIFIC ILLUSTRATOR WELL AWARE. WILL CONTINUE TO MONITOR AND REASSESS FOR ANY CHANGES THROUGHOUT THE SHIFT
[2020-02-26] VITALS: BP 151/68
[2020-02-26] MEDS: BLOOD SUGAR DIAGNOSTIC 1 EACH STRIP IN SCH ×6 (01:17→21:42)
[2020-02-26] MEDS: INSULIN REGULAR, HUMAN 100 UNIT/ML 3 ML VIAL SQ PRN ×6 (01:18→21:43)
[2020-02-26 04:00] VITALS: BP 147/65
--- NOTE | 2020-02-26 06:46 | NUR ---
RN CLOSING NOTE: PATIENT REMAINS IN ROOM. NO SIGNS OF RESPIRATORY DISTRESS. WILL ENDORSE TO INCOMING RN THAT PT DE-SATS FAST WHEN PT REMOVES HER NC AND NRB MASKS. PT SATING AROUND 87- 94% WITHIN THE WHOLE SHIFT. COORDINATED WITH RT CURRENTLY PTS ON 60L 100% FI02 VIA NC AND 15L O2 VIA NRB MASKS.PT NOW ON RESTRAINTS MONITORED PER PROTOCOL. SAFETY MEASURES IMPLEMENTED, BED IN LOWEST POSITION, LOCKED, SIDE RAILS UP, CALL LIGHT WITHIN REACH. ALL NEEDS AND ORDERS ADDRESSED DURING THE SHIFT. IV ACCESS MAINTAINED INTACT, SECURED AND FLUSHING WELL. ALL DUE MEDS GIVEN ORDERED & SCHEDULED ; PATIENT TOLERATED WELL.PATIENT KEPT CLEAN AND COMFORTABLE WITHIN THE SHIFT. ENDORSED TO INCOMING SHIFT RN FOR CONTINUITY OF CARE.
[2020-02-26 07:44] LABS: BASOPHILS # (AUTO) 0.1 /CMM (0.0-0.2); BASOPHILS % (AUTO) 0.3 % (0.0-2.0); HEMATOCRIT 43 % (33-45); HEMOGLOBIN 13.7 g/dL (11.5-14.8); LYMPHOCYTES # (AUTO) 0.9 /CMM (0.8-4.8); MEAN CORPUSCULAR HGB CONC 32 g/dl (31.0-36.0); MEAN CORPUSCULAR VOLUME 89 fL (82-100); MONOCYTES # (AUTO) 0.5 /CMM (0.1-1.30); MONOCYTES % (AUTO) 2.6 % (2.0-12.0); NEUTROPHILS % (AUTO) 92.1 % (43.0-81.0); PLATELET COUNT (AUTO) 229 /CMM (150-450); RED BLOOD CELL COUNT(AUTO) 4.84 MIL/uL (4.0-5.2); WHITE BLOOD COUNT (AUTO) 17.3 K/uL (4.3-11.0)
[2020-02-26 08:00] VITALS: BP 155/85
--- NOTE | 2020-02-26 08:06 | NUR ---
OPEN NOTES PATIENT IS A/O X 2-3 ON 60L FIO2 100% HIGH FLOW AND NON-REBREATHER WITH NO SIGNS OF DISTRESS. FRANC SOFT RESTRAINTS ON WITH GOOD CAPILLARY REFILL, HANDS ARE WARM AND NO SWELLING. R UA MIDLINE. ON TELE MONITOR SR 70'S. NO COMPLAIN OF PAIN AT THIS TIME. SAFETY MEASURES ARE APPLIED BED IS IN THE LOWEST POSITION SIDE RAILS UP X 2. CALL LIGHT WITHIN REACH WILL CONTINUE TO MONITOR.
[2020-02-26] MEDS: METOPROLOL TARTRATE 50 MG TABLET PO SCH ×2 (08:17→21:33)
[2020-02-26] MEDS: PANTOPRAZOLE 40 MG TABLET.DR PO SCH (08:17)
[2020-02-26] MEDS: AMLODIPINE BESYLATE 5 MG TABLET PO SCH (08:17)
[2020-02-26] MEDS: LOSARTAN POTASSIUM 50 MG TABLET PO SCH (08:18)
[2020-02-26] MEDS: DEXAMETHASONE SOD PHOSPHATE 10 MG/ML VIAL IV SCH (08:18)
[2020-02-26 08:19] LABS: ALBUMIN 2.1 g/dL (3.4-5.0); BILIRUBIN,TOTAL 0.9 mg/dL (0.2-1.0); CALCIUM, SERUM 9.1 mg/dL (8.5-10.1); CREATININE 0.9 mg/dL (0.6-1.3); MAGNESIUM 2.1 mg/dL (1.8-2.4); PHOSPHORUS 4.7 mg/dL (2.5-4.9); POTASSIUM 5.3 mmol/L (3.5-5.1); TOTAL PROTEIN, SERUM 7.7 g/dL (6.4-8.2)
[2020-02-26] MEDS: ENOXAPARIN SODIUM 30 MG/0.3 ML DISP.SYRIN SQ SCH ×2 (08:21→21:43)
[2020-02-26] MEDS: MONTELUKAST SODIUM (10MG) 10 MG TABLET PO SCH (08:21)
[2020-02-26] MEDS: GLUCERNA SHAKE 237 ML CAN PO SCH ×3 (08:24→17:26)
[2020-02-26 09:07] LABS: BILIRUBIN,DIRECT 0.3 mg/dL (0.0-0.2)
[2020-02-26 12:00] VITALS: BP 151/79
[2020-02-26] MEDS ORDERED: SODIUM POLYSTYRENE SULF. PWD 15 GM UDC PO ONE (15:30)
[2020-02-26 16:00] VITALS: BP 121/66
[2020-02-26] MEDS ORDERED: SODIUM POLYSTYRENE SULFONATE 15 G/60 ML BOTTLE PO ONE (16:00)
--- NOTE | 2020-02-26 18:45 | NUR ---
OPEN NOTES PATIENT IS A/O X 2-3 ON 60L FIO2 100% HIGH FLOW AND NON-REBREATHER WITH NO SIGNS OF DISTRESS. FRANC SOFT RESTRAINTS ON WITH GOOD CAPILLARY REFILL, HANDS ARE WARM AND NO SWELLING. R UA MIDLINE. ON TELE MONITOR SR. PATIENT KEPT CLEAN AND DRY. ALL NEEDS, CARE, TREATMENT, AND MEDICATIONS WERE ADMINISTERED ANTICIPATED PER ORDER. SAFETY MEASURES ARE APPLIED, BED IS IN LOW POSITION SIDE RAILS UP X 2. CALL LIGHT WITHIN REACH WILL ENDORSE TO THE CLUTCH MECHANIC NURSE.
--- NOTE | 2020-02-26 18:46 | NUR ---
RN CLOSING NOTES PATIENT IS A/O X 2-3 ON 60L FIO2 100% HIGH FLOW AND NON-REBREATHER WITH NO SIGNS OF DISTRESS. FRANC SOFT RESTRAINTS ON WITH GOOD CAPILLARY REFILL, HANDS ARE WARM AND NO SWELLING. R UA MIDLINE. ON TELE MONITOR SR. PATIENT KEPT CLEAN AND DRY. ALL NEEDS, CARE, TREATMENT, AND MEDICATIONS WERE ADMINISTERED ANTICIPATED PER ORDER. SAFETY MEASURES ARE APPLIED, BED IS IN LOW POSITION SIDE RAILS UP X 2. CALL LIGHT WITHIN REACH WILL ENDORSE TO THE MOBILE LAB TECHNICIAN NURSE.
[2020-02-26] MEDS: REMDESIVIR (CHARGED) 100 MG in IV NS 0.9% 230 ML IV SCH (18:52)
--- NOTE | 2020-02-26 19:20 | NUR ---
RN NOTES RECEIVED PT; A/OX 2-3 IN BED RESTING COMFORTABLY. PATIENT IN NO S/SX OF ACUTE DISTRESS AT THIS TIME. NO SOB NOTED. PATIENT'S BREATHING IS EVEN AND UNLABORED. PATIENT IS ON 15L OF OXYGEN VIA NRB MASK AND HIGH FLOW VIA NC @60LPM/100%fi02; TOLERATING WELL.PATIENT ON TELE MONITORING READING SINUS RHYTHM HR IS @70s AT THE TIME OF RECEIVED NOTED IV SITE ON R UA MIDLINE;PATENT, INTACT AND FLUSHING WELL; NO S/S OF INFECTION OR INFILTRATION. PT ON SOFT DIET.SAFETY MEASURES HAVE BEEN PROVIDED AND IMPLEMENTED. PATIENT BED ALARM IS ON. HEAD OF BED ELEVATED. BED IS LOCKED, IN LOWEST POSITION AND SIDE RAILS UP. CALL LIGHT WITHIN REACH OF THE PATIENT. APPLICABLE ISOLATION PRECAUTIONS IN PLACE. WILL CONTINUE TO MONITOR AND REASSESS FOR ANY CHANGES AND WILL CARRY OUT ANY ONGOING AND ACTIVE MD ORDER.
[2020-02-26 20:00] VITALS: BP 144/82
[2020-02-26] MEDS: ATORVASTATIN 40 MG TABLET PO SCH (21:32)
--- NOTE | 2020-02-26 22:00 | NUR ---
RN NOTES PATIENT REMAINS IN NO ACUTE RESPIRATORY DISTRESS AT THIS TIME, NO CHANGES TO CONDITION/STATUS. STORE OPERATIONS MANAGER WELL AWARE. WILL CONTINUE TO MONITOR AND REASSESS FOR ANY CHANGES THROUGHOUT THE SHIFT
[2020-02-27] MEDS: BLOOD SUGAR DIAGNOSTIC 1 EACH STRIP IN SCH ×6 (01:12→20:56)
[2020-02-27] MEDS: INSULIN REGULAR, HUMAN 100 UNIT/ML 3 ML VIAL SQ PRN ×2 (01:12→13:30)
[2020-02-27 01:42] VITALS: BP 130/60
--- NOTE | 2020-02-27 03:00 | NUR ---
RN NOTES NO CHANGE IN PATIENT CONDITION AT THIS TIME PATIENT VITALS STABLE, NO SIGNS OF ACUTE RESPIRATORY DISTRESS. EMPLOYMENT INTERVIEWER MADE AWARE. WILL CONTINUE TO MONITOR AND REASSESS FOR ANY CHANGES THROUGHOUT THE SHIFT.
[2020-02-27 04:00] VITALS: BP 150/70
[2020-02-27] MEDS: DEXTROSE 50%-WATER 50 ML DISP.SYRIN IV PRN ×3 (04:21→20:57)
[2020-02-27 06:10] LABS: BASOPHILS # (AUTO) 0.2 /CMM (0.0-0.2); HEMATOCRIT 43 % (33-45); HEMOGLOBIN 13.8 g/dL (11.5-14.8); LYMPHOCYTES # (AUTO) 0.6 /CMM (0.8-4.8); LYMPHOCYTES % (AUTO) 2.7 % (20.0-44.0); MEAN CORPUSCULAR HGB CONC 32 g/dl (31.0-36.0); MEAN CORPUSCULAR VOLUME 88 fL (82-100); MONOCYTES # (AUTO) 0.8 /CMM (0.1-1.30); MONOCYTES % (AUTO) 3.6 % (2.0-12.0); NEUTROPHILS # (AUTO) 19.9 /CMM (1.8-8.9); NEUTROPHILS % (AUTO) 92.7 % (43.0-81.0); PLATELET COUNT (AUTO) 264 /CMM (150-450); RED BLOOD CELL COUNT(AUTO) 4.88 MIL/uL (4.0-5.2); WHITE BLOOD COUNT (AUTO) 21.5 K/uL (4.3-11.0)
[2020-02-27 06:42] LABS: BILIRUBIN,DIRECT 0.3 mg/dL (0.0-0.2); BILIRUBIN,TOTAL 0.6 mg/dL (0.2-1.0); CALCIUM, SERUM 8.6 mg/dL (8.5-10.1); POTASSIUM 3.1 mmol/L (3.5-5.1); TOTAL PROTEIN, SERUM 7.4 g/dL (6.4-8.2)
--- NOTE | 2020-02-27 07:00 | NUR ---
PT RECEIVED IN BED WITH RESTRAINTS ORDERED, AOX2-3. CHINESE SPEAKING. PT ON 60L/100% AND 15 NRB. PT IV ACCESS INTACT AND FLUSHED WELL. PT NOT ABLE TO TOLERATE BSC, USES BEDPAN. SKIN INTACT. ALL SAFETY MEASURES IN PLACE. WILL CONTINUE TO MONITOR CLOSELY
[2020-02-27 08:00] VITALS: BP 151/69
[2020-02-27] MEDS: ENOXAPARIN SODIUM 30 MG/0.3 ML DISP.SYRIN SQ SCH ×3 (09:00→21:13)
[2020-02-27] MEDS: PANTOPRAZOLE 40 MG TABLET.DR PO SCH (09:10)
[2020-02-27] MEDS: MONTELUKAST SODIUM (10MG) 10 MG TABLET PO SCH (09:10)
[2020-02-27] MEDS: AMLODIPINE BESYLATE 5 MG TABLET PO SCH (09:11)
[2020-02-27] MEDS: GLUCERNA SHAKE 237 ML CAN PO SCH ×3 (09:12→18:10)
[2020-02-27] MEDS: LOSARTAN POTASSIUM 50 MG TABLET PO SCH (09:12)
[2020-02-27] MEDS: METOPROLOL TARTRATE 50 MG TABLET PO SCH ×2 (09:12→20:33)
[2020-02-27 12:00] VITALS: BP 143/74
[2020-02-27] MEDS: POTASSIUM CHLORIDE 20 MEQ POWDER PACKET PO SCH ×2 (12:30→12:56)
[2020-02-27 16:00] VITALS: BP 140/64
[2020-02-27] MEDS: REMDESIVIR (CHARGED) 100 MG in IV NS 0.9% 230 ML IV SCH (18:32)
--- NOTE | 2020-02-27 19:15 | NUR ---
RECEIVED ON BED ASLEEP EASY TO WAKE UP ON 60L AND 100% FIO2 HIGH FLOW AND 15L NON REBREATHER MASK SPO2 90-92% WITH BILATERAL WRIST RESTRAINTS CIRCULATION WAS CHECKED TELE MONITOR READS SINUS TACHY 100-110, WITH TRUE MIDLINE PATENT AND FLUSH, DROPLET ISOLATION FOR COVID 19 BED ON LOWEST POSITION AND LOCKED SIDE RAILS UP X2 CALL LIGHT WITHIN REACH WILL CONT TO MONITOR THE PT
--- NOTE | 2020-02-27 19:30 | NUR ---
PT REMAINS IN BED, ON RESTRAINTS ORDERED, WITH 60L/100% AND 15L NRB. PT FAMILY EXPLAINED IMPORTANCE OF OXYGEN TO PT, BUT PT STATES THAT TOO MUCH AIR IS "SUFFOCATING" AND LEADS TO HER REMOVING O2. PT HAD POOR APPETITE THIS SHIFT, MINIMAL INTAKE OF PRESCRIBED GLUCERNA SHAKES. IV ACCESS REMAINS INTACT. ALL SAFETY MEASURES IN PLACE. REPORT GIVEN TO GIANCARLO FOR XIOMARA
[2020-02-27 20:00] VITALS: BP 127/66
[2020-02-27] MEDS: ATORVASTATIN 40 MG TABLET PO SCH (21:21)
[2020-02-28] VITALS (12 sets, daily range): BP systolic 102–150; BP diastolic 46–81
[2020-02-28] MEDS: BLOOD SUGAR DIAGNOSTIC 1 EACH STRIP IN SCH ×6 (00:38→21:38)
[2020-02-28] MEDS: INSULIN REGULAR, HUMAN 100 UNIT/ML 3 ML VIAL SQ PRN ×4 (00:41→21:38)
--- NOTE | 2020-02-28 02:10 | NUR ---
PT ASK TO USE A BED GAMA @ 0100 BUT AFTER SHE USE BED GAMA HER SPO2 GOES TO 79-82 AND SHE LOOKS VERY TIRED AND TACHYPNIC REPORTED TO PEDRO BEAR NP, SEEN AND EXAMINED BY SANTOS BEAR NP WITH ORDER STAT ABG AND TO INSERT WHITEHEAD CATHETER SO THAT PT WILL NOT USE BEDPAN ANYMORE AND TO KEEP MONITOR THE PT, CALLED THE RT FOR THE STAT ABG, SPO2 OF THE PT IS GRADUALLY GOING UP WITH CURRENT SPO2 86% WILL CONT TO MONITOR THE PT
[2020-02-28 04:08] LABS: ABG BASE EXCESS -0.8 mmol/L; ABG OXYGEN SATURATION 77.2 % (92.0-98.5); ABG PCO2 31.5 mmHg (35.0-45.0); ABG PH 7.465 (7.350-7.450); ABG PO2 40.9 mmHg (75.0-100.0); AaDO2 640.6 mmHg; COHb 1.1 % (0.5-1.5); MetHb 0.3 % (0.0-1.5); O2Hb 76.1 % (94.0-97.0); SITE, ABG Right Brachial; VENT MODE, BG HFNC 100% + NRB 15L
--- NOTE | 2020-02-28 04:21 | NUR ---
ABG RESULT RELAYED TO SANTOS BEAR CATALOGUE COMPILER WITH ORDER MAINTAIN CLOSE MONITORING THE PT AND CALL HIM ONCE THE PT BECOME CONFUSED OR ANY CHANGES ON CONDITION, RT AND CHARGE NURSE MADE AWARE, NOTED AND CARRIED OUT, CURRENTLY PT SPO2 IS 85% STILL ALERT ORIENTED X3
--- NOTE | 2020-02-28 05:01 | NUR ---
spo2 of 85% PT SLEEPING EASY TO WAKE UP WILL CONT TO MONITOR
--- NOTE | 2020-02-28 07:01 | NUR ---
PT ON BED ASLEEP EASY TO WAKE UP STILL ON NRM 15L AND HIGHFLOW 60L 100% FIO2 SPO2 88-90% TELE MONITOR READS SINUS RHYTHM 80'S NO SIGNIFICANT CHANGES ON CONDITION NOTED ALL NEEDS ATTENDED, BED ON LOWEST POSITION AND LOCKED SIDE RAIL UP X2 CALL LIGHT WITHIN REACH WILL ENDORSED TO AM SHIFT NURSE
--- NOTE | 2020-02-28 08:00 | NUR ---
RN OPENING NOTE RECEIVED PATIENT IN BED AOX3. PATIENT IS ON A 15L NON REBREATHER AND HIGHFLOW 60L @100% FIO2. SKIN IS INTACT. SOFT RESTRAINTS ARE IN PLACE. TRUE MIDLINE IS INTACT, PATENT, AND HAS NO SIGNS OF INFILTRATION. BED IS IN THE LOWEST POSITION, 2 SIDE RAILS RAISED, CALL CASTRO WITHIN REACH, AND ALL HOSPITAL SAFETY PRECAUTIONS ARE BEING FOLLOWED. WILL CONTINUE TO MONITOR THROUGHOUT SHIFT.
[2020-02-28 08:40] LABS: BASOPHILS % (AUTO) 0.1 % (0.0-2.0); EOSINOPHILS % (AUTO) 0.2 % (0.0-6.0); HEMATOCRIT 37 % (33-45); HEMOGLOBIN 11.8 g/dL (11.5-14.8); LYMPHOCYTES # (AUTO) 0.7 /CMM (0.8-4.8); LYMPHOCYTES % (AUTO) 3.8 % (20.0-44.0); MEAN CORPUSCULAR HGB CONC 32 g/dl (31.0-36.0); MEAN CORPUSCULAR VOLUME 88 fL (82-100); MONOCYTES # (AUTO) 0.3 /CMM (0.1-1.30); MONOCYTES % (AUTO) 1.7 % (2.0-12.0); NEUTROPHILS # (AUTO) 16.3 /CMM (1.8-8.9); NEUTROPHILS % (AUTO) 94.2 % (43.0-81.0); PLATELET COUNT (AUTO) 203 /CMM (150-450); WHITE BLOOD COUNT (AUTO) 17.3 K/uL (4.3-11.0)
[2020-02-28 08:55] LABS: ALBUMIN 1.6 g/dL (3.4-5.0); BILIRUBIN,DIRECT 0.4 mg/dL (0.0-0.2); BILIRUBIN,TOTAL 0.7 mg/dL (0.2-1.0); CALCIUM, SERUM 8.1 mg/dL (8.5-10.1); CREATININE 0.9 mg/dL (0.6-1.3); MAGNESIUM 1.8 mg/dL (1.8-2.4); PHOSPHORUS 2.7 mg/dL (2.5-4.9); POTASSIUM 3.2 mmol/L (3.5-5.1)
[2020-02-28 08:59] LABS: C-REACTIVE PROTEIN 16.1 mg/dL (0.0-0.9)
[2020-02-28] MEDS: METOPROLOL TARTRATE 50 MG TABLET PO SCH ×2 (09:16→21:24)
[2020-02-28] MEDS: PANTOPRAZOLE 40 MG TABLET.DR PO SCH (09:17)
[2020-02-28] MEDS: LOSARTAN POTASSIUM 50 MG TABLET PO SCH (09:17)
[2020-02-28] MEDS: AMLODIPINE BESYLATE 5 MG TABLET PO SCH (09:17)
[2020-02-28] MEDS: MONTELUKAST SODIUM (10MG) 10 MG TABLET PO SCH (09:17)
[2020-02-28] MEDS: ENOXAPARIN SODIUM 30 MG/0.3 ML DISP.SYRIN SQ SCH ×2 (09:18→21:37)
[2020-02-28] MEDS: GLUCERNA SHAKE 237 ML CAN PO SCH ×3 (09:24→17:00)
[2020-02-28] MEDS: ACETAMINOPHEN 325 MG TABLET PO PRN (09:49)
--- NOTE | 2020-02-28 09:53 | NUR ---
BUSINESS TECHNOLOGY PROFESSOR NOTE T 100.2 TYLENOL PO GIVEN, WILL MONITOR
[2020-02-28] MEDS: POTASSIUM CHLORIDE 20 MEQ POWDER PACKET PO SCH ×2 (11:18→12:46)
--- NOTE | 2020-02-28 11:30 | NUR ---
PATIENT FINANCIAL REP NOTE CONT ON NONREBREATHER MASK AND HIGH FLOW OF O2 STILL SATURATION 85-87 %
[2020-02-28] MEDS ORDERED: TOCILIZUMAB 400 MG in IV NS 0.9% 80 ML IV ONE ×2 (12:00→14:00)
--- NOTE | 2020-02-28 13:00 | NUR ---
MARKETING RESEARCHER NOTE DR WAN DOPE WEIGH OPERATOR AWARE OF PATIENT CONDITION
[2020-02-28] MEDS ORDERED: ACETAMINOPHEN 325 MG TABLET PO ONE (13:30)
[2020-02-28] MEDS ORDERED: methylPREDNISolone SOD SUCC 40 MG/ML VIAL IV ONE (13:30)
[2020-02-28] MEDS ORDERED: diphenhydrAMINE HCL 50 MG/ML VIAL IV ONE (14:00)
--- NOTE | 2020-02-28 17:00 | NUR ---
telephone supervisor note dr dowd at bedside ok to renew soft restrain also ok to transfer to icu due to o2 saturation dropping to 83-80%
[2020-02-28] MEDS: REMDESIVIR (CHARGED) 100 MG in IV NS 0.9% 100 ML IV SCH (18:00)
--- NOTE | 2020-02-28 18:36 | NUR ---
RN CLOSING NOTE PATIENT IS IN BED WITH HOB AT SEMI FOWLERS POSITION. PATIENT IS AOX3. PATIENT IS RECEIVING 15L VIA NON REBREATHER MASK AND HIGH FLOW 60L AT 100% FIO2. PATIENT'S O2 IS CURRENTLY 81%. SKIN IS INTACT. WHITEHEAD CATHETER IS IN PLACE. SOFT RESTRAINTS ARE IN PLACE. TRUE MIDLINE IS INTACT, PATENT, AND HAS NO SIGNS OF INFILTRATION. BED IS LOCKED IN THE LOWEST POSITION, CALL CASTRO WITHIN REACH, 3 SIDE RAILS ARE RAISED, AND ALL HOSPITAL SAFETY PRECAUTIONS ARE BEING FOLLOWED. WILL ENDORSE TO MANAGER EDUCATIONAL NURSE.
--- NOTE | 2020-02-28 18:56 | NUR ---
TRAIN DIRECTOR NOTE NO BED AVAILABLE AT THIS TIME IN ICU ,WILL STAY IN UNIT ICU OVER FLOW ,WILL CONT TO MONITOR
--- NOTE | 2020-02-28 19:00 | NUR ---
RN OPENING NOTE RECEIVED PATIENT IN BED RESTING ALERT ORIENTED X3 FORGETFUL ON HIGH FLOW OXYGEN 60L FIO2 100% AND NON BREATHER 15L O2:77% PATIENT WILL TRANSFER TO ICU WHEN BED IS AVAILABLE.
--- NOTE | 2020-02-28 19:45 | NUR ---
RN CLOSING NOTE PATIENT TRANSFERRED TO ICU AT ROOM 251 REPORT GIVEN TO OLIVIA MILLS
--- NOTE | 2020-02-28 19:56 | NUR ---
RT Pt transported to ICU Room 251. Vapotherm HFNC plugged into red outlet and functioning with 40 lpm 100% O2 with NRB. Addendum: 02/28/20 at 2037 by SAM AMAYA RT Amended: Links added.
--- NOTE | 2020-02-28 20:12 | NUR ---
RT STAT ABG COMPLETED. READBACK TO GENE AKHTAR Addendum: 02/28/20 at 2037 by SAM AMAYA RT Amended: Links added.
[2020-02-28 20:20] LABS: ABG BASE EXCESS -1.3 mmol/L; ABG OXYGEN SATURATION 81.5 % (92.0-98.5); ABG PCO2 29.1 mmHg (35.0-45.0); ABG PO2 45.9 mmHg (75.0-100.0); COHb 0.5 % (0.5-1.5); MetHb 0.1 % (0.0-1.5); SITE, ABG Right Radial; VENT MODE, BG HFNC 40 lpm + NRB
--- NOTE | 2020-02-28 20:33 | NUR ---
MANAGER PROGRESSIVE CARE NOTE: 1944: Pt brought to ICU via acls protocol for desaturation. Hooked up to monitors. On high flow 60LPM at 100% and nonrebreather mask at 15LPM. IV sites intact. Stat abg order placed. 2026: Paged theater projectionist Jarrett Mulligan w/ abg results. Stated to "monitor". Noted. Will continue to monitor.
[2020-02-28] MEDS: ATORVASTATIN 40 MG TABLET PO SCH (21:23)
[2020-02-29] VITALS (55 sets, daily range): BP systolic 53–208; BP diastolic 19–111
[2020-02-29] MEDS: BLOOD SUGAR DIAGNOSTIC 1 EACH STRIP IN SCH ×5 (00:53→17:02)
[2020-02-29] MEDS: INSULIN REGULAR, HUMAN 100 UNIT/ML 3 ML VIAL SQ PRN ×3 (00:55→13:58)
[2020-02-29 04:07] LABS: BASOPHILS % (AUTO) 0.1 % (0.0-2.0); HEMATOCRIT 40 % (33-45); HEMOGLOBIN 12.7 g/dL (11.5-14.8); LYMPHOCYTES # (AUTO) 0.5 /CMM (0.8-4.8); LYMPHOCYTES % (AUTO) 3.5 % (20.0-44.0); MEAN CORPUSCULAR HGB CONC 32 g/dl (31.0-36.0); MEAN CORPUSCULAR VOLUME 88 fL (82-100); MONOCYTES # (AUTO) 0.2 /CMM (0.1-1.30); MONOCYTES % (AUTO) 1.3 % (2.0-12.0); NEUTROPHILS # (AUTO) 12.9 /CMM (1.8-8.9); NEUTROPHILS % (AUTO) 95.1 % (43.0-81.0); PLATELET COUNT (AUTO) 221 /CMM (150-450); RED BLOOD CELL COUNT(AUTO) 4.52 MIL/uL (4.0-5.2); WHITE BLOOD COUNT (AUTO) 13.5 K/uL (4.3-11.0)
[2020-02-29 04:22] LABS: ALBUMIN 1.5 g/dL (3.4-5.0); BILIRUBIN,DIRECT 0.3 mg/dL (0.0-0.2); BILIRUBIN,TOTAL 0.5 mg/dL (0.2-1.0); CALCIUM, SERUM 8.3 mg/dL (8.5-10.1); MAGNESIUM 1.9 mg/dL (1.8-2.4); PHOSPHORUS 2.8 mg/dL (2.5-4.9); POTASSIUM 3.8 mmol/L (3.5-5.1); TOTAL PROTEIN, SERUM 6.4 g/dL (6.4-8.2)
[2020-02-29] MEDS: GLUCERNA SHAKE 237 ML CAN PO SCH ×3 (07:52→16:50)
--- NOTE | 2020-02-29 08:00 | NUR ---
RN OPENING NOTE RECEIVED PATIENT IN BED AOX3. PATIENT IS ON A 15L NON REBREATHER AND HIGHFLOW 40L @100% FIO2. SKIN IS INTACT. SOFT RESTRAINTS ARE IN PLACE. TRUE MIDLINE IS INTACT, PATENT, AND HAS NO SIGNS OF INFILTRATION. BED IS IN THE LOWEST POSITION, 2 SIDE RAILS RAISED, CALL CASTRO WITHIN REACH, AND ALL HOSPITAL SAFETY PRECAUTIONS ARE BEING FOLLOWED. WILL CONTINUE TO MONITOR THROUGHOUT SHIFT.
[2020-02-29] MEDS: PANTOPRAZOLE 40 MG TABLET.DR PO SCH (08:04)
[2020-02-29] MEDS: MONTELUKAST SODIUM (10MG) 10 MG TABLET PO SCH (08:04)
[2020-02-29] MEDS: METOPROLOL TARTRATE 50 MG TABLET PO SCH ×2 (08:05→21:00)
[2020-02-29] MEDS: LOSARTAN POTASSIUM 50 MG TABLET PO SCH (08:05)
[2020-02-29] MEDS: ENOXAPARIN SODIUM 30 MG/0.3 ML DISP.SYRIN SQ SCH ×2 (08:06→22:09)
[2020-02-29] MEDS: AMLODIPINE BESYLATE 5 MG TABLET PO SCH (08:13)
[2020-02-29 11:12] LABS: ABG BASE EXCESS 0.5 mmol/L; ABG OXYGEN SATURATION 81.3 % (92.0-98.5); ABG PCO2 34.3 mmHg (35.0-45.0); ABG PH 7.461 (7.350-7.450); ABG PO2 43.8 mmHg (75.0-100.0); AaDO2 634.9 mmHg; COHb 0.5 % (0.5-1.5); O2Hb 80.9 % (94.0-97.0); SITE, ABG Left Radial; VENT MODE, BG HFNC 40L 100% +NRB
--- NOTE | 2020-02-29 15:27 | NUR ---
RT SPOKE WITH ANESTHESIOLOGIST AND PER HIS PREFERENCE PATIENT WILL BE INTUBATED AT 7PM LONG PATIENT REMAINS STABLE AND FOLLOWING COMMANDS.
--- NOTE | 2020-02-29 16:00 | NUR ---
RN NOTES SPOKE WITH ANESTHESIOLOGIST AND PER HIS PREFERENCE PATIENT WILL BE INTUBATED AT 7PM LONG PATIENT REMAINS STABLE AND FOLLOWING COMMANDS.
[2020-02-29] MEDS: ACETAMINOPHEN 325 MG TABLET PO PRN (16:53)
[2020-02-29] MEDS: REMDESIVIR (CHARGED) 100 MG in IV NS 0.9% 100 ML IV SCH (17:30)
--- NOTE | 2020-02-29 18:24 | NUR ---
RN CLOSING NOTE PATIENT IN BED AOX3. PATIENT IS ON A 15L NON REBREATHER AND HIGHFLOW 40L @100% FIO2. SKIN IS INTACT. SOFT RESTRAINTS ARE IN PLACE. TRUE MIDLINE IS INTACT, PATENT, AND HAS NO SIGNS OF INFILTRATION. BED IS IN THE LOWEST POSITION, 2 SIDE RAILS RAISED, CALL CASTRO WITHIN REACH, AND ALL HOSPITAL SAFETY PRECAUTIONS ARE BEING FOLLOWED. INTUBATION SCHEDULED AT 7 PM FAMILY IA AWARE THE PROS AND CONS . WILL ENDORSE TO PM NURSE FOR XIOMARA
--- NOTE | 2020-02-29 19:15 | NUR ---
SKIAGRAPHER OPENING NOTES: Rec'd pt in bed, A&ox2. Pt on hi flow 02 at 40LPM at 100% and 15LPM nonrebreather mask. SR on tele monitor. TRUE midline patent and flushed. Dressing c/d/i. Koenig in place, draining urine via gravity. With orders to intubate pt. Safety measures in place. Will continue to monitor.
[2020-02-29] MEDS ORDERED: SUCCINYLCHOLINE CHLORIDE 20 MG/ML VIAL ONE (19:27)
[2020-02-29] MEDS: PROPOFOL 100 ML IV PRN (19:42)
--- NOTE | 2020-02-29 19:57 | NUR ---
@192 PT ORALLY INTUBATED BY ANESTHESIOLOGIST. 7.0 ETT @ 21CM AT THE LIP VIA ANCHOR FAST. PLACED ON 840 VENT. AC 24, 400, 100%, +5. ALARMS SET AND AUDIBLE. AMBU BAG AT BEDSIDE. Addendum: 02/29/20 at 1958 by HUEY COHEN RT Amended: Links added.
--- NOTE | 2020-02-29 20:11 | NUR ---
CONCERT PROMOTER NOTE: 1928: Pt intubated by anesthesiologist. 7/21cm at the lip. Vent settings - AC 24, TV 400, Fio2 100%, PEEP 5. Left NGT placed and verified with charge nurse. Diprivan drip initiated. Will titrate per protocol. CXR ordered. Will continue to monitor.
--- NOTE | 2020-02-29 20:35 | NUR ---
DISTRICT PLANT SUPERVISOR NOTE: 1949: Paged application security architect Jarrett Mulligan and asked to change pt's diet order to npo except meds. Agreed, order noted and carried out. 2020: Paged application security architect Jarrett Mulligan and asked to change q4h accucheck w/ aggressive scale to npo sliding scale. Agreed, order noted and carried out.
[2020-02-29] MEDS ORDERED: DEXTROSE 50%-WATER 50 ML DISP.SYRIN IV PRN (21:00)
[2020-02-29 21:31] LABS: ABG BASE EXCESS -0.6 mmol/L; ABG OXYGEN SATURATION 88.6 % (92.0-98.5); ABG PCO2 36.9 mmHg (35.0-45.0); ABG PH 7.423 (7.350-7.450); ABG PO2 55.8 mmHg (75.0-100.0); AaDO2 620.3 mmHg; COHb 0.4 % (0.5-1.5); MetHb 0.3 % (0.0-1.5); PEEP,BG 5 cm H2O; SITE, ABG Right Radial
--- NOTE | 2020-02-29 21:31 | NUR ---
ABG DONE. NOTIFIED RN WITH THE RESULT.
[2020-02-29] MEDS ORDERED: NOREPINEPHRINE 8MG/250ML RTU 250 ML IV ONE (21:34)
[2020-02-29] MEDS: NOREPINEPHRINE 8 MG in IV NS 0.9% 242 ML IV PRN (21:40)
--- NOTE | 2020-02-29 21:43 | NUR ---
MARK CHANGED TO 8 PER SANTOS NUCLEAR TEST TECHNICIAN
--- NOTE | 2020-02-29 21:50 | NUR ---
TRUCK OPERATOR NOTE: [id number]: Paged high school admissions representative Jarrett w/ post intubation abg results for pt. Rec'd new order to increase PEEP to 8. Order noted and carried out. RT aware.
[2020-02-29] MEDS: ATORVASTATIN 40 MG TABLET PO SCH (22:04)
[2020-03-01] VITALS (97 sets, daily range): BP systolic 48–164; BP diastolic 18–78
[2020-03-01] MEDS: BLOOD SUGAR DIAGNOSTIC 1 EACH STRIP IN SCH ×4 (00:29→18:20)
[2020-03-01] MEDS: INSULIN REGULAR, HUMAN 100 UNIT/ML 3 ML VIAL SQ PRN ×2 (00:33→18:22)
[2020-03-01] MEDS: PROPOFOL 100 ML IV PRN ×5 (02:26→23:12)
[2020-03-01 04:26] LABS: BASOPHILS % (AUTO) 0.2 % (0.0-2.0); EOSINOPHILS % (AUTO) 1.6 % (0.0-6.0); HEMATOCRIT 39 % (33-45); HEMOGLOBIN 12.6 g/dL (11.5-14.8); LYMPHOCYTES # (AUTO) 0.9 /CMM (0.8-4.8); LYMPHOCYTES % (AUTO) 4.4 % (20.0-44.0); MEAN CORPUSCULAR HGB CONC 33 g/dl (31.0-36.0); MEAN CORPUSCULAR VOLUME 88 fL (82-100); MONOCYTES # (AUTO) 0.1 /CMM (0.1-1.30); MONOCYTES % (AUTO) 0.6 % (2.0-12.0); NEUTROPHILS # (AUTO) 19.7 /CMM (1.8-8.9); NEUTROPHILS % (AUTO) 93.2 % (43.0-81.0); PLATELET COUNT (AUTO) 278 /CMM (150-450); RED BLOOD CELL COUNT(AUTO) 4.42 MIL/uL (4.0-5.2); WHITE BLOOD COUNT (AUTO) 21.2 K/uL (4.3-11.0)
[2020-03-01 04:50] LABS: CREATININE 1.1 mg/dL (0.6-1.3); MAGNESIUM 1.9 mg/dL (1.8-2.4); PHOSPHORUS 3.3 mg/dL (2.5-4.9)
[2020-03-01] MEDS ORDERED: NOREPINEPHRINE 4 MG/4 ML AMPUL IV ONE (05:21)
[2020-03-01 05:24] LABS: BAND % (MANUAL) 9 % (0.0-5.0); EOSINOPHILS % (MANUAL) 1 % (0-4); LYMPHOCYTES % (MANUAL) 2 % (16-48); METAMYELOCYTES % 1 % (0-0); NEUTROPHILS % (MANUAL) 87 (42-76)
[2020-03-01] MEDS: NOREPINEPHRINE 8 MG in IV NS 0.9% 242 ML IV PRN ×2 (05:28→13:23)
[2020-03-01] MEDS: GLUCERNA SHAKE 237 ML CAN PO SCH ×3 (08:00→16:47)
[2020-03-01] MEDS: MONTELUKAST SODIUM (10MG) 10 MG TABLET PO SCH (08:08)
[2020-03-01] MEDS: PANTOPRAZOLE 40 MG TABLET.DR PO SCH (08:08)
[2020-03-01] MEDS: AMLODIPINE BESYLATE 5 MG TABLET PO SCH (08:09)
[2020-03-01] MEDS: LOSARTAN POTASSIUM 50 MG TABLET PO SCH (08:09)
[2020-03-01] MEDS: METOPROLOL TARTRATE 50 MG TABLET PO SCH ×2 (08:09→21:00)
[2020-03-01] MEDS: ENOXAPARIN SODIUM 30 MG/0.3 ML DISP.SYRIN SQ SCH ×2 (08:11→21:25)
--- NOTE | 2020-03-01 08:16 | NUR ---
PATIENT'S BP MEDS HELD D/T PATIENT BEING INTUBATED AND ON PRESSORS FOR BP SUPPORT.
[2020-03-01] MEDS ORDERED: ETOMIDATE 2 MG/ML VIAL ONE (10:55)
[2020-03-01] MEDS: VANCOMYCIN HCL 0.75 GM in IV D5W 250 ML IV SCH (16:25)
[2020-03-01] MEDS: ZOSYN IVPB 3.375 G in IV D5W 50ml IV SCH (16:51)
[2020-03-01] MEDS: NOREPINEPHRINE 32 MG in IV NS 0.9% 218 ML IV PRN (18:27)
--- NOTE | 2020-03-01 18:40 | NUR ---
PER DR BURGOS, START FENTANYL DRIP IF RR REMAINS HIGH, FENTANYL DRIP ORDERED. CREPITUS NOTED ON CHEST, STAT CHEST X RAY ORDERED.
--- NOTE | 2020-03-01 18:47 | NUR ---
CONTACTED [employer] FOR PRODUCTION LEAD PUMP FOR NEW ORDER OF FENTANYL. NONE AVAILABLE. NONE AVAILABLE ON FLOOR. INFORMED THEM TO BRING A PUMP TO 251 WHEN THERE'S ONE AVAILABLE. CN AWARE.
[2020-03-01] MEDS ORDERED: FENTANYL CITRAT IV 2,500 MCG in IV NS 0.9% 200 ML IV PRN (19:00)
--- NOTE | 2020-03-01 19:25 | NUR ---
TEST ARCHITECT OPENING NOTES: Rec'd pt in bed intubated 7/21cm at the lip and sedated. Tolerating settings well. SR on tele monitor. TRUE midline patent and flushed w/ Diprivan infusing at 100mcg/kg and Levo at 0.7mcg/kg. Koenig in place, draining urine via gravity. With orders to intubate pt. Safety measures in place. Will continue to monitor.
[2020-03-01] MEDS: ATORVASTATIN 40 MG TABLET PO SCH (21:23)
[2020-03-02] VITALS (74 sets, daily range): BP systolic 41–143; BP diastolic 20–73
[2020-03-02] MEDS: BLOOD SUGAR DIAGNOSTIC 1 EACH STRIP IN SCH ×5 (00:05→23:26)
[2020-03-02] MEDS: INSULIN REGULAR, HUMAN 100 UNIT/ML 3 ML VIAL SQ PRN ×4 (00:07→23:39)
[2020-03-02] MEDS: ZOSYN IVPB 3.375 G in IV D5W 50ml IV SCH ×5 (00:44→23:26)
--- NOTE | 2020-03-02 02:15 | NUR ---
IMMIGRATION JUDGE NOTE: [phone]: Paged career transition specialist Dr. Carmen regarding pt's low SBP in 60s. No reply [phone]: Paged Dr. Carmen again and received orders to start Trey drip. Order noted and carried out.
[2020-03-02] MEDS: PROPOFOL 100 ML IV PRN ×3 (02:21→10:42)
[2020-03-02] MEDS ORDERED: PHENYLEPHRINE 10 MG/ML VIAL ONE (02:29)
[2020-03-02] MEDS ORDERED: NOREPINEPHRINE 8MG/250ML RTU 250 ML IV ONE (02:30)
[2020-03-02] MEDS: NOREPINEPHRINE 32 MG in IV NS 0.9% 218 ML IV PRN ×2 (02:42→17:04)
[2020-03-02] MEDS: PHENYLEPHRINE 50 MG in IV NS 0.9% 245 ML IV PRN ×5 (03:00→21:52)
--- NOTE | 2020-03-02 05:25 | NUR ---
TUBULAR STOCK GLASS BULB MACHINE FORMER NOTE: Paged Dr. Kermit henao/ jimmy results and updated on pt's bp dropping despite titrating Trey up. Stated to add Dopamine if needed. Order noted and carried out. Addendum: 03/02/20 at 0634 by HERMILO JACOBO RN Let know that pt is tachycardic, said it's ok to for dopamine drip if needed
[2020-03-02 05:43] LABS: ABG BASE EXCESS -14.9 mmol/L; ABG OXYGEN SATURATION 72.5 % (92.0-98.5); ABG PCO2 39.3 mmHg (35.0-45.0); ABG PH 7.145 (7.350-7.450); ABG PO2 44.2 mmHg (75.0-100.0); AaDO2 629.5 mmHg; COHb 0.5 % (0.5-1.5); MetHb 0.1 % (0.0-1.5); O2Hb 72.1 % (94.0-97.0); PEEP,BG 10 cm H2O; SITE, ABG Right Radial; VENT MODE, BG AC 24 400 100% +10; VT, ABG 400 mL
[2020-03-02] MEDS ORDERED: DOPamine 400 MG in IV D5W 250 ML IV PRN (06:00)
[2020-03-02 06:13] LABS: CALCIUM, SERUM 7.5 mg/dL (8.5-10.1); CARBON DIOXIDE 12 mmol/L (21-32); CHLORIDE 101 mmol/L (98-107); CREATININE 2.6 mg/dL (0.6-1.3); GLUCOSE 206 mg/dL (74-106); MAGNESIUM 2.1 mg/dL (1.8-2.4); SODIUM SERUM 134 mmol/L (136-145); UREA NITROGEN, BLOOD 65 mg/dL (7-18)
[2020-03-02 06:23] LABS: PHOSPHORUS 8.9 mg/dL (2.5-4.9); POTASSIUM 6.6 mmol/L (3.5-5.1)
--- NOTE | 2020-03-02 06:35 | NUR ---
HEAD OF PARTNER DEVELOPMENT NOTE: Paged Dr. Carmen w/ critical lab values of K: 606 and Phos 8.9. Gave order for Kayexelate 30. Noted and carried out.
[2020-03-02 06:38] LABS: BASOPHILS # (AUTO) 0.1 /CMM (0.0-0.2); BASOPHILS % (AUTO) 0.4 % (0.0-2.0); EOSINOPHILS % (AUTO) 1.5 % (0.0-6.0); HEMATOCRIT 37 % (33-45); HEMOGLOBIN 13.4 g/dL (11.5-14.8); LYMPHOCYTES # (AUTO) 1.3 /CMM (0.8-4.8); LYMPHOCYTES % (AUTO) 7.3 % (20.0-44.0); MEAN CORPUSCULAR HGB CONC 37 g/dl (31.0-36.0); MEAN CORPUSCULAR VOLUME 90 fL (82-100); MONOCYTES # (AUTO) 0.2 /CMM (0.1-1.30); MONOCYTES % (AUTO) 1.2 % (2.0-12.0); NEUTROPHILS # (AUTO) 15.9 /CMM (1.8-8.9); NEUTROPHILS % (AUTO) 89.6 % (43.0-81.0); PLATELET COUNT (AUTO) 229 /CMM (150-450); RED BLOOD CELL COUNT(AUTO) 4.07 MIL/uL (4.0-5.2); WHITE BLOOD COUNT (AUTO) 17.8 K/uL (4.3-11.0)
[2020-03-02] MEDS ORDERED: SODIUM POLYSTYRENE SULF. PWD 15 GM UDC PO ONE (07:30)
--- NOTE | 2020-03-02 07:30 | NUR ---
RECEIVED PT IN IN BED. BLOOD PRESSURE TRENDING DOWN. ALL MEDS GIVEN ORDERED. WILL CONTINUE TO MONITOR.
[2020-03-02] MEDS: ENOXAPARIN SODIUM 30 MG/0.3 ML DISP.SYRIN SQ SCH ×2 (08:14→21:03)
[2020-03-02] MEDS: PANTOPRAZOLE 40 MG TABLET.DR PO SCH (08:17)
[2020-03-02] MEDS: AMLODIPINE BESYLATE 5 MG TABLET PO SCH (08:17)
[2020-03-02] MEDS: METOPROLOL TARTRATE 50 MG TABLET PO SCH ×2 (08:18→20:39)
[2020-03-02] MEDS: VANCOMYCIN HCL 0.75 GM in IV D5W 250 ML IV SCH (08:19)
[2020-03-02] MEDS: GLUCERNA SHAKE 237 ML CAN PO SCH ×3 (08:19→17:15)
[2020-03-02] MEDS: LOSARTAN POTASSIUM 50 MG TABLET PO SCH (08:19)
[2020-03-02] MEDS: MONTELUKAST SODIUM (10MG) 10 MG TABLET PO SCH (08:21)
--- NOTE | 2020-03-02 08:23 | NUR ---
RT PATIENT REC'D IN CRITICAL CONDITION. PATIENT IS ORALLY INTUBATED ON [facility] VENT ON 100% FIO2. VENT ALARMS AND SETTINGS CHECKED. WILL CONT TO MONITOR CLOSELY Addendum: 03/02/20 at 1509 by MARK BOYLE RT Amended: Links added.
[2020-03-02 11:04] LABS: ABG BASE EXCESS -17.3 mmol/L; ABG OXYGEN SATURATION 83.6 % (92.0-98.5); ABG PCO2 38.1 mmHg (35.0-45.0); ABG PH 7.099 (7.350-7.450); ABG PO2 56.8 mmHg (75.0-100.0); AaDO2 618.1 mmHg; COHb 0.3 % (0.5-1.5); MetHb 0.2 % (0.0-1.5); O2Hb 83.2 % (94.0-97.0); SITE, ABG Right Radial
[2020-03-02] MEDS ORDERED: SODIUM BICARBONATE SYR 50 MEQ/50 ML DISP.SYRIN ONE ×2 (11:27)
[2020-03-02] MEDS ORDERED: SODIUM BICARBONATE SYR 50 MEQ/50 ML DISP.SYRIN IV ONE (11:30)
[2020-03-02] MEDS ORDERED: Sodium Bicarbonate 150 MEQ in IV D5W 1,000 ML IV PRN (14:30)
[2020-03-02] MEDS: Sodium Bicarbonate 150 MEQ in IV D5W 1,000 ML IV PRN (15:15)
[2020-03-02 17:43] LABS: ABG BASE EXCESS -14.6 mmol/L; ABG OXYGEN SATURATION 84.7 % (92.0-98.5); ABG PCO2 44.5 mmHg (35.0-45.0); ABG PH 7.119 (7.350-7.450); ABG PO2 59.6 mmHg (75.0-100.0); AaDO2 608.9 mmHg; COHb 0.3 % (0.5-1.5); MetHb 0.1 % (0.0-1.5); O2Hb 84.4 % (94.0-97.0); SITE, ABG Right Radial; VENT MODE, BG AC 32 450 +12 100%
--- NOTE | 2020-03-02 17:46 | NUR ---
RT CODE BLUE CALLED AND CPR INITIATED. WAS ABLE TO REGAIN PULSE. FAMILY HAS NOW MADE PATIENT DNR.
[2020-03-02 19:29] LABS: CHLORIDE 103 mmol/L (98-107); GLUCOSE 331 mg/dL (74-106); POTASSIUM 5.8 mmol/L (3.5-5.1); SODIUM SERUM 140 mmol/L (136-145); UREA NITROGEN, BLOOD 68 mg/dL (7-18)
--- NOTE | 2020-03-02 19:30 | NUR ---
RN NOTE RECEIVED PATIENT IN BED, OBTUNDED. PATIENT S/P CODE 03/02/2019 AROUND 1700, IN NO S/SX OF ACUTE DISTRESS AT THIS TIME. PATIENT IS ON ET TUBE CONNECTED TO MECHANICAL VENT WITH SETTINGS PRESCRIBED, 09/07 ON THE LIP,AC 24, TV 450, FIO2 AT 100% AND PEEP 12, SATURATION ONLY AT 62-63%, SBP BELOW 90 DESPITE PRESSORS ON MAXIMUM. PATIENT SINUS TACHYCARDIA ON THE MONITOR, HR IS AT 100-110'S. NOTED NG TUBE AT L NARE INTACT, NPO STATUS MAINTAINED. NOTED TRUE MIDLINE, PATENT AND FLUSHING WELL, NO S/S OF INFECTION, WITH NEOSYNEPHRINE INFUSING AT 3 MCG, LEVO AT 1 MCG, AND SODIUM BICARBONATE AT 60 ML/HR. WHITEHEAD CATHETER CONNECTED TO URINE BAG IN PLACE, DRAINING TO A CLEAR, YELLOW URINE, 20 ML OUTPUT NOTED. SAFETY MEASURES IMPLEMENTED PER PROTOCOL. PATIENT BED ALARM IS ON. HEAD OF BED ELEVATED. BED IS LOCKED, IN LOWEST POSITION AND SIDE RAILS UP. CALL LIGHT WITHIN REACH OF THE PATIENT. WILL CONTINUE TO MONITOR AND REASSESS FOR ANY CHANGES.
[2020-03-02 19:42] LABS: TRIGLYCERIDES 1802 mg/dL (30-150)
[2020-03-02 19:56] LABS: CREATININE 3.2 mg/dL (0.6-1.3)
[2020-03-02 19:57] LABS: CALCIUM, SERUM 5.1 mg/dL (8.5-10.1); CARBON DIOXIDE 7 mmol/L (21-32)
--- NOTE | 2020-03-02 19:58 | NUR ---
RN NOTE TELEPHONE CALL FROM CANDICE OF LAB, RELAYED CRITICAL LAB VALUE FOLLOWS: CO2 7, CA 5.1. DR WHEELER NOTIFIED. ACKNOWLEDGED WITH NO NEW ORDERS. SOA INTEGRATION DEVELOPER MADE AWARE.
--- NOTE | 2020-03-02 21:20 | NUR ---
RN NOTE HD CATH PLACEMENT STARTED AT 2119 PERFORMED BY Praneeth LEYVA, INSERTED TRAMAINE CATH AT R FEMORAL, FOLLOWED BY HEPARIN SODIUM 5000 UNITS, ADMINISTERED BY Praneeth LEYVA. NO SIGNS OF BLEEDING NOTED. WILL CONTINUE TO MONITOR.
[2020-03-02] MEDS: ATORVASTATIN 40 MG TABLET PO SCH (21:25)
[2020-03-02] MEDS ORDERED: HEPARIN SODIUM, PORCINE 5000 UNITS/1 ML VIAL IV ONE (22:00)
[2020-03-03] VITALS (57 sets, daily range): BP systolic 39–104; BP diastolic 15–78
[2020-03-03] MEDS: NOREPINEPHRINE 32 MG in IV NS 0.9% 218 ML IV PRN ×2 (01:31→10:53)
[2020-03-03] MEDS: PHENYLEPHRINE 50 MG in IV NS 0.9% 245 ML IV PRN ×3 (02:35→13:18)
[2020-03-03 05:05] LABS: CHLORIDE 102 mmol/L (98-107); GLUCOSE 184 mg/dL (74-106); SODIUM SERUM 144 mmol/L (136-145); UREA NITROGEN, BLOOD 66 mg/dL (7-18)
[2020-03-03] MEDS: BLOOD SUGAR DIAGNOSTIC 1 EACH STRIP IN SCH ×2 (05:10→11:39)
[2020-03-03] MEDS: ZOSYN IVPB 3.375 G in IV D5W 50ml IV SCH ×2 (05:10→11:15)
--- NOTE | 2020-03-03 05:20 | NUR ---
RN NOTE TELEPHONE CALL RECEIVED FROM CANDICE OF LAB, RELAYED CRITICAL LAB VALUE FOLLOWS: K 6.7, CO2 8, CA 5.8. DR WHEELER WAS NOTIFIED. ORDERS RECEIVED TO ADMINISTER D50% 50 ML, AND 10 UNITS REGULAR INSULIN IV. ACCUCHECK RESULTED, 84. VERIFIED WITH DR WHEELER IF OK TO ADMINISTER 10 UNITS REGULAR INSULIN IV, HE SAID "YES". CLINICAL PROJECT ASSISTANT MADE AWARE.
[2020-03-03 05:21] LABS: CREATININE 3.8 mg/dL (0.6-1.3)
[2020-03-03 05:23] LABS: CALCIUM, SERUM 5.8 mg/dL (8.5-10.1); CARBON DIOXIDE 8 mmol/L (21-32); POTASSIUM 6.7 mmol/L (3.5-5.1)
[2020-03-03] MEDS ORDERED: DEXTROSE 50%-WATER 50 ML DISP.SYRIN IVP STA (05:23)
[2020-03-03] MEDS ORDERED: INSULIN REGULAR, HUMAN 100 UNIT/ML 10 ML VIAL IV STA (05:25)
[2020-03-03] MEDS ORDERED: VASOPRESSIN INJ 40 UNIT in IV NS 0.9% 38 ML IV PRN (07:00)
[2020-03-03 07:26] LABS: ABG BASE EXCESS -28.9 mmol/L; ABG PCO2 41.4 mmHg (35.0-45.0); ABG PH 6.736 (7.350-7.450); AaDO2 619.6 mmHg; COHb 0.3 % (0.5-1.5); MetHb 0.3 % (0.0-1.5); O2Hb 71.6 % (94.0-97.0); PEEP,BG 12 cm H2O; SITE, ABG Left Brachial; VT, ABG 450 mL
[2020-03-03] MEDS: PANTOPRAZOLE 40 MG TABLET.DR PO SCH ×2 (07:30→08:23)
--- NOTE | 2020-03-03 07:30 | NUR ---
RN CLOSING NOTE PATIENT REMAINS IN ROOM, SBP REMAINS BELOW 90. NO CHANGES WITH MECHANICAL VENT SETTINGS. ORDERS RECEIVED FROM DR OMALLEY TO START VASOPRESSIN DRIP. LEVO INFUSING AT 1 MCG, ASHANTI AT 3 MCG, AND NA BICARBONATE AT 60 ML/HR. SAFETY MEASURES IMPLEMENTED, BED IN LOWEST POSITION, LOCKED, SIDE RAILS UP, CALL LIGHT WITHIN REACH. ALL NEEDS AND ORDERS ADDRESSED DURING THE SHIFT. IV ACCESS MAINTAINED INTACT, SECURED AND FLUSHING WELL. ALL DUE MEDS GIVEN ORDERED & SCHEDULED ; PATIENT TOLERATED WELL. PATIENT KEPT CLEAN AND COMFORTABLE WITHIN THE SHIFT. ENDORSED TO YAIMA MILLS FOR CONTINUATION OF CARE.
[2020-03-03] MEDS: GLUCERNA SHAKE 237 ML CAN PO SCH ×3 (07:45→17:00)
[2020-03-03] MEDS ORDERED: SODIUM BICARBONATE SYR 50 MEQ/50 ML DISP.SYRIN ONE (08:10)
[2020-03-03] MEDS ORDERED: EPINEPHRINE (1:10,000) SYRINGE 1 MG/10 ML DISP.SYRIN ONE (08:10)
[2020-03-03] MEDS: MONTELUKAST SODIUM (10MG) 10 MG TABLET PO SCH (08:22)
[2020-03-03] MEDS: ENOXAPARIN SODIUM 30 MG/0.3 ML DISP.SYRIN SQ SCH (08:29)
[2020-03-03] MEDS: METOPROLOL TARTRATE 50 MG TABLET PO SCH (08:29)
[2020-03-03] MEDS: LOSARTAN POTASSIUM 50 MG TABLET PO SCH (08:29)
[2020-03-03] MEDS: AMLODIPINE BESYLATE 5 MG TABLET PO SCH (08:30)
[2020-03-03] MEDS ORDERED: VANCOMYCIN 500 MG in IV D5W 100ml IV SCH (09:00)
--- NOTE | 2020-03-03 09:43 | NUR ---
RN NOTES UNABLE TO DRAW BLOOD, VANCO ON HOLD, AWAITING FOR VANCO TROUGH. WILL CONTINUE TO MONITOR.
[2020-03-03] MEDS: Sodium Bicarbonate 150 MEQ in IV D5W 1,000 ML IV PRN (10:15)
[2020-03-03 10:57] LABS: BASOPHILS # (AUTO) 0.1 /CMM (0.0-0.2); BASOPHILS % (AUTO) 0.3 % (0.0-2.0); EOSINOPHILS % (AUTO) 2.4 % (0.0-6.0); HEMATOCRIT 34 % (33-45); HEMOGLOBIN 11.1 g/dL (11.5-14.8); LYMPHOCYTES # (AUTO) 0.9 /CMM (0.8-4.8); LYMPHOCYTES % (AUTO) 4.8 % (20.0-44.0); MEAN CORPUSCULAR HGB CONC 32 g/dl (31.0-36.0); MEAN CORPUSCULAR VOLUME 100 fL (82-100); MONOCYTES # (AUTO) 0.1 /CMM (0.1-1.30); MONOCYTES % (AUTO) 0.3 % (2.0-12.0); NEUTROPHILS # (AUTO) 17.4 /CMM (1.8-8.9); NEUTROPHILS % (AUTO) 92.2 % (43.0-81.0); PLATELET COUNT (AUTO) 165 /CMM (150-450); RED BLOOD CELL COUNT(AUTO) 3.43 MIL/uL (4.0-5.2); WHITE BLOOD COUNT (AUTO) 18.9 K/uL (4.3-11.0)
[2020-03-03 11:43] LABS: BAND % (MANUAL) 9 % (0.0-5.0); EOSINOPHILS % (MANUAL) 1 % (0-4); LYMPHOCYTES % (MANUAL) 7 % (16-48); MONOCYTES % (MANUAL) 9 % (0-11.0); NEUTROPHILS % (MANUAL) 74 (42-76)
--- NOTE | 2020-03-03 12:00 | NUR ---
RN NOTES DIALYSIS NURSE ON UNIT, WILL DIALYZE THE PATIENT, NOTED WITH LOW BP, MAX ON 3 PRESSORS. WILL CONTINUE TO MONITOR.
--- NOTE | 2020-03-03 12:30 | NUR ---
RN NOTES HD WAS HELD, PATIENT IS NOT ABLE TO TOLERATE DIALYSIS. BP IS UNSTABLE. MAX ON 3 PRESSORS. MD MADE AWARE. WILL CONTINUE TO MONITOR.
--- NOTE | 2020-03-03 15:25 | NUR ---
RN NOTES VANCO WAS GIVEN LATE, DUE TO LATE RESULT OF VANCO TROUGH, PHARMACY AWARE.
--- NOTE | 2020-03-03 18:00 | NUR ---
RN NOTES 16:35- FRONT DESK ADMIN INFORMED RN TO CHECKED PATIENT, RN CHECKED V/S, UNABLE TO GET PULSE AND BP. 16:40- CALLED ANOTHER RN TO CONFIRMED, 17:00 CALLED [facility], SPOKE TO HALIE CASE # [id number]. MD, TUB PULLER AND CHARGE NURSE MADE AWARE. ALL BELONGINGS CHECKED AND SIGNED, CHART AND BELONGINGS GIVEN TO THE NURSING TUB PULLER, FAMILY WILL PICK IT UP. 17:15-POST MORTEM CARE DONE, PATIENT HAS 1 GREEN BRACELET ON THE BODY, UNABLE TO REMOVED DUE TO SWOLLEN HANDS, 17:20- BODY WAS PICKED UP BY SECURITY TO BRING TO THE [facility].
[2020-03-03] MEDS ORDERED: HEPARIN SODIUM, PORCINE 5000 UNITS/1 ML VIAL SQ SCH (21:00)
--- NOTE | 2020-03-08 11:28 | NUR ---
CAMMIE was contacted by Nursing Pit Boss Sara regarding this patient. Patient on 03/03/2020 and patient's daughter Viridiana Lopez [phone] is requesting a letter confirming patient at [facility]. CAMMIE to follow-up with patient's daughter. CAMMIE remains available for all needs regarding this patient.
--- NOTE | 2020-03-08 11:55 | NUR ---
CAMMIE contacted Viridiana Lopez [phone], CAMMIE will have letter regarding patient's prepared for pick-up today 03/08/2020 at 3pm. CAMMIE remains available for all needs regarding this patient.
== END 2020-03-03 16:30 | disposition expired | DRG 871 ==
LOC: ER 10:54 → TRANSITION 17:10 → TELE1 02-17 05:55 → ICUOV 02-28 18:55 → ICU 02-28 19:43
PROVIDERS: ADMIT Nurse Practitioner Acute Care; ATTEND Nurse Practitioner Acute Care
PROC: 05HB33Z Insertion of Infusion Device into Right Basilic Vein, Percutaneous Approach (ICD-10-PCS; 2020-02-19)
PROC: XW13325 Transfusion of Convalescent Plasma (Nonautologous) into Peripheral Vein, Percutaneous Approach, New Technology Group 5 (ICD-10-PCS; 2020-02-21)
PROC: XW033E5 Introduction of Remdesivir Anti-infective into Peripheral Vein, Percutaneous Approach, New Technology Group 5 (ICD-10-PCS; principal; 2020-02-25)
PROC: 5A1945Z Respiratory Ventilation, 24-96 Consecutive Hours (ICD-10-PCS; 2020-02-29)
PROC: 0BH18EZ Insertion of Endotracheal Airway into Trachea, Via Natural or Artificial Opening Endoscopic (ICD-10-PCS; 2020-02-29)
PROC: 5A2204Z Restoration of Cardiac Rhythm, Single (ICD-10-PCS; 2020-03-02)
PROC: 06HY33Z Insertion of Infusion Device into Lower Vein, Percutaneous Approach (ICD-10-PCS; 2020-03-02)
DX: A41.89 Other specified sepsis (principal); U07.1 COVID-19; N17.0 Acute kidney failure with tubular necrosis; J96.01 Acute respiratory failure with hypoxia; J12.82 Pneumonia due to coronavirus disease 2019; J15.9 Unspecified bacterial pneumonia; E87.1 Hypo-osmolality and hyponatremia; E87.2 Acidosis; Z66 Do not resuscitate; E11.65 Type 2 diabetes mellitus with hyperglycemia; E78.5 Hyperlipidemia, unspecified; I10 Essential (primary) hypertension; K21.9 Gastro-esophageal reflux disease without esophagitis; Z79.84 Long term (current) use of oral hypoglycemic drugs; E11.649 Type 2 diabetes mellitus with hypoglycemia without coma; F41.9 Anxiety disorder, unspecified; E87.5 Hyperkalemia; R74.01 Elevation of levels of liver transaminase levels; N13.9 Obstructive and reflux uropathy, unspecified; S20.211A Contusion of right front wall of thorax, initial encounter; X58.XXXA Exposure to other specified factors, initial encounter; Y92.9 Unspecified place or not applicable
CPT/HCPCS: 31720; 36410; 36415; 36600; 71045-TC; 80048-TC; 80053-TC; 80061-TC; 80076-TC; 80202-TC; 81001; 82248-TC; 82550-TC; 82553; 82570-TC; 82728-TC; 82803-TC; 82962-TC; 83605-TC; 83615-TC; 83735-TC; 83880; 83970; 84100-TC; 84155; 84155-TC; 84165; 84300-TC; 84443-TC; 84478-TC; 84484-TC; 85025-TC; 85378-TC; 85610-TC; 85730-TC; 86140-TC; 86480; 86850-TC; 87040-TC; 87081-TC; 87899; 90935-TC; 94002-TC; 94003-TC; 94760-TC; 94799-TC; 97112-TC; 97116-TC; 97530-TC; 99082-TC; A4216; C1750; C9803; G0378; J0171; J0330; J0692; J0696; J1100; J1200; J1644; J1650; J1815; J1885; J2370; J2543; J2920; J3010; J3262; J3370; J3475; J3490; J7030; J7040; J7050; J7060; J7070; P9017-BL; U0003